=== PATIENT | female | born 1960 | race Caucasian/White ===

== ENCOUNTER 2021-12-25 14:58 | Outpatient (CLI) | payer BC, SELFPAY ==
--- NOTE | 2021-12-25 15:20 | CRLHL7_ITS ---
For Patients: As a result of the Century Cures Act, medical imaging exams and procedure reports are released immediately into your electronic medical record. You may view this report before your referring provider. If you have questions, please contact your health care provider. BILATERAL SCREENING MAMMOGRAM WITH COMPUTER-AIDED DETECTION AND TOMOSYNTHESIS TECHNIQUE: CC and MLO views were obtained. These mammographic images have been obtained using full-field digital technique. These mammographic images were interpreted with the benefit of computer-aided detection. Breast Tomosynthesis was used in this interpretation. COMPARISON FILM: 11/29/20, MRI 05/29/21, 11/25/18. FINDINGS: There are scattered areas of fibroglandular density IMPRESSION: There is no radiographic evidence for malignancy. ASSESSMENT: BI-RADS Category 1: Negative RECOMMENDATION: Routine screening mammogram in 1 year. A lay language report of this examination will be provided to the patient. Sean Harvey M.D. Diagnostic Radiologist [email or web address] JANETH/Dictated by: Sean Harvey MD @ 12/26/2021 8:53:00 AM (Electronically Signed)
== END 2021-12-25 14:59 | disposition home or self-care (01) ==
LOC: MAMMO 15:00
PROVIDERS: Visit Provider Nurse Practitioner Family
DX: Z12.31 Encounter for screening mammogram for malignant neoplasm of breast (principal)
CPT/HCPCS: 77063; 77067

== ENCOUNTER 2022-05-05 10:43 | Outpatient (CLI) | payer BC, SELFPAY ==
[2022-05-05 22:18] LABS: Albumin* 4.6 g/dL (3.3-5.0); Chloride* 103 mmol/L (96-114); Potassium* 4.2 mmol/L (3.6-5.1); Sodium* 142 mmol/L (135-149)
[2022-05-05 22:20] LABS: Cholesterol* 219 mg/dL (90-199); Creatinine* 0.9 mg/dL (0.5-1.5); Estimated Glomerular Filt Rate 73 ml/min
[2022-05-05 22:21] LABS: Alanine Aminotransferase* 48 U/L (4-35); Alkaline Phosphatase* 80 U/L (40-150); Bilirubin Total* 0.8 mg/dL (0.1-1.5); Blood Urea Nitrogen* 13 mg/dL (7-30); Carbon Dioxide* 29 mmol/L (20-32); Glucose* 97 mg/dL (60-115); Total Protein* 7.9 g/dL (6.0-8.3); Triglycerides* 147 mg/dL (40-149)
[2022-05-05 22:22] LABS: Calcium* 10.3 mg/dL (8.4-10.6); HDL Cholesterol* 53 mg/dL (>=50); LDL Cholesterol Calculated 137 mg/dL (<100)
[2022-05-05 22:33] LABS: Vitamin D 25 Hydroxy* 50 ng/mL (30-80)
[2022-05-05 23:01] LABS: Aspartate Amino Transferase* 41 U/L (12-35)
[2022-05-05 23:05] LABS: Hepatitis C Virus Antibody* Negative (Negative)
== END 2022-05-05 10:44 | disposition home or self-care (01) ==
PROVIDERS: PCP Family Medicine; Visit Provider Family Medicine
DX: Z11.59 Encounter for screening for other viral diseases (principal); I10 Essential (primary) hypertension; E78.5 Hyperlipidemia, unspecified; E05.90 Thyrotoxicosis, unspecified without thyrotoxic crisis or storm; Z79.899 Other long term (current) drug therapy
CPT/HCPCS: 80053; 80061; 82306; 84443; 86803

== ENCOUNTER 2022-05-22 12:37 | Outpatient (CLI) | payer BC, SELFPAY ==
--- NOTE | 2022-05-22 14:00 | CRLHL7_ITS ---
For Patients: As a result of the Cures Act, medical imaging exams and procedure reports are released immediately into your electronic medical record. You may view this report before your referring provider. If you have questions, please contact your health care provider. Examination: US abdominal aorta Indication: Abdominal aortic aneurysm screening. Technique: Fernández scale and color Doppler images of the aorta and common iliac arteries are obtained. Comparison: None Findings: Proximal aorta: 2.5 x 2.5 cm Mid aorta: 1.9 x 1.9 cm Distal aorta: 1.9 x 1.6 cm Right common iliac artery: 1.1 x 1.0 cm Left common iliac artery: 1.2 x 1.1 cm Impression: No abdominal aortic aneurysm. Dictated by Sean Harvey MD @ 05/22/2022 3:00:50 PM (Electronically Signed)
--- NOTE | 2022-05-22 15:00 | CRLHL7_ITS ---
For Patients: As a result of the Century Cures Act, medical imaging exams and procedure reports are released immediately into your electronic medical record. You may view this report before your referring provider. If you have questions, please contact your health care provider. CLINICAL HISTORY: Postmenopausal bleeding episode TECHNIQUE: 2D hernandez scale and color Doppler images were acquired of the pelvis using a transvaginal approach. FINDINGS: On transvaginal imaging, the myometrium has a heterogeneous echotexture. There is a posterior mid intramural fibroid measuring 1.7 x 1.3 x 1.2 cm. The endometrial lining appears diffusely thickened and measures 14 mm in thickness. Incidental cervical nabothian cysts are present. The uterus measures 9.1 x 4.1 x 5.7 cm. The ovaries are surgically absent. There are no suspicious fluid collections within the cul-de-sac. IMPRESSION: Diffusely thickened endometrium measuring 14 millimeters. Posterior midline uterine fibroid measuring 1.7 cm. Dictated by Sean Harvey MD @ 05/22/2022 2:58:46 PM (Electronically Signed)
== END 2022-05-22 12:38 | disposition home or self-care (01) ==
LOC: RAD 12:38
PROVIDERS: PCP Family Medicine; Visit Provider Family Medicine
DX: N95.0 Postmenopausal bleeding (principal); R93.89 Abnormal findings on diagnostic imaging of other specified body structures; D25.9 Leiomyoma of uterus, unspecified; I77.810 Thoracic aortic ectasia
CPT/HCPCS: 76706; 76830; 93306

== ENCOUNTER 2022-06-10 13:46 | Outpatient (CLI) | payer BC, SELFPAY ==
--- NOTE | 2022-06-10 14:30 | CRLHL7_ITS ---
For Patients: As a result of the Century Cures Act, medical imaging exams and procedure reports are released immediately into your electronic medical record. You may view this report before your referring provider. If you have questions, please contact your health care provider. BILATERAL BREAST MRI WITHOUT AND WITH GADOLINIUM CLINICAL HISTORY: Personal history of RIGHT breast atypical lobular hyperplasia and LEFT breast DCIS. The patient underwent lumpectomy and radiation for the LEFT breast DCIS in . There is also a history of surgical excision of the ALH in the RIGHT breast. INDICATION FOR BREAST MRI: Screening breast MRI in this high-risk woman. COMPARISON STUDIES: Breast MRI 05/29/2021. BILATERAL mammogram 12/25/2021. CONTRAST: 15 mL Dotarem. TECHNIQUE: The patient was positioned prone using a breast coil. Multiple imaging sequences were obtained using 1-1.5 mm thick slices with no gap. The image sequences include T2-weighted STIR in the axial plane, T1-weighted nonfat-saturated gradient echo in the axial plane, pre- and post-contrast T1-weighted FLASH 3D with fat suppression in the axial plane, and T1-weighted FLASH high-resolution 3D with fat suppression in the sagittal plane. Image post-processing was performed on a Pix4D workstation. Complex 3D rendering including maximum intensity projections (MIPS) and volumetric renderings were obtained to optimize visualization of the extent of pathology and relationship to the nipple, skin, and chest wall. This aids in determining feasibility of breast conservation surgery. Subtraction, multiplanar reconstruction, mean curve determination, and angiogenesis mapping were also performed. The study was technically adequate. FINDINGS: Amount of Fibroglandular Tissue: Scattered fibroglandular tissue. Breast Background Enhancement: Mild. RIGHT/LEFT Breast: Negative for suspicious mass or non-mass enhancement. Lymph Nodes: Lymph nodes are preserved. IMPRESSIONS AND RECOMMENDATIONS: Negative for signs of malignancy. Recommend follow-up with annual screening mammography. If continuing breast MRI, this is best offset from mammogram by six months. BI-RADS Category 1: Negative Trish Boone M.D. Body/Breast Radiologist [email or web address] JAMES/mónica sales/Dictated by: Trish Boone MD @ 06/11/2022 4:00:00 PM (Electronically Signed)
== END 2022-06-10 13:47 | disposition home or self-care (01) ==
LOC: MRI 13:46
PROVIDERS: PCP Family Medicine; Visit Provider Nurse Practitioner Family
DX: Z12.39 Encounter for other screening for malignant neoplasm of breast (principal); N60.91 Unspecified benign mammary dysplasia of right breast
CPT/HCPCS: 77049; A9575

== ENCOUNTER 2022-07-03 14:29 | Outpatient (RCR) | payer BC, SELFPAY | END 2022-12-30 23:59 | disposition home or self-care (01) | LOC: CCIC 14:29 | PROVIDERS: PCP Family Medicine; Visit Provider Nurse Practitioner Family | DX: D05.12 Intraductal carcinoma in situ of left breast (principal); Z17.0 Estrogen receptor positive status [ER+] | CPT/HCPCS: 99212; 99214 ==

== ENCOUNTER 2022-07-15 08:01 | Day surgery (SDC) | payer BC, SELFPAY ==
[2022-07-15 08:13] VITALS: BMI 40.2
[2022-07-15 08:20] VITALS: BP 130/76; PULSE 64; RESP 16; TEMP 36.4; O2SAT 94
--- NOTE | 2022-07-15 08:20 | SUR.PREOP ---
Patient provided home covid negative results to RN.
[2022-07-15] MEDS: LACTATED RINGERS 1000 ML 1,000 ML 100 ML IV (08:30)
[2022-07-15] MEDS: SODIUM CHLORIDE 0.9 % (FLUSH) 10 ML SYRINGE IVF (08:30)
--- NOTE | 2022-07-15 09:00 | W.PM.GYNPROC ---
Procedure Note Date Seen: 07/15/22 Procedure Details: PREOPERATIVE DIAGNOSIS: 1. Postmenopausal bleeding 2. Thickened endometrial (14 mm) by ultrasound 3. History of endometrial polyp POSTOPERATIVE DIAGNOSIS: 1. Postmenopausal bleeding 2. Thickened endometrial (14 mm) by ultrasound 3. History of endometrial polyp 4. Multiple endometrial polyps NAME OF PROCEDURE: 1. Hysteroscopy. 2. D and C 3. Polypectomies. SURGEON: Abel. ANESTHESIA: Monitored anesthesia care and paracervical block. COMPLICATIONS: None.. ESTIMATED BLOOD LOSS: Less than 10 mL. FLUID DEFICIT: 185 mL recorded in the instrument, though approximately 50 mL was lost on the floor. Total deficit estimated to be 135 mL saline. FINDINGS: Multiple endometrial polyps. PATHOLOGY SPECIMENS: 1. Endometrial polyps and endometrial curettings sent as a single specimen. PROCEDURE: After obtaining informed consent, the patient was taken to the operating room where she received monitored anesthesia care. She was prepared and draped in the normal sterile fashion, in the dorsal lithotomy position. An open-sided bivalve speculum was introduced into the vagina and the cervix visualized. The anterior lip of the cervix was grasped with a single-tooth tenaculum for traction. A paracervical block was then administered using a total of 20 mL of a 50/50 mixture of 0.25% Marcaine and 1% lidocaine plain. The uterus was gently sounded. Sound length was 8 cm. The cervix was gently dilated to a # 6 Hegar dilator. A hysteroscope was then advanced under direct visualization through the cervix into the uterine cavity. Sterile normal saline was used as distending medium. The uterine cavity was carefully inspected with the findings noted above. Pictures were taken for documentation purposes. The TruClear morcellator was inserted through the operating channel in the hysteroscope. The morcellator was used to remove the polyps in their entirety. The hysteroscope was then removed. The endometrial lining was then sharply curetted. The hysteroscope was removed. The tenaculum was removed. There was little bleeding from the tenaculum site, which was controlled with direct pressure sponge stick. All instruments were then removed. The patient tolerated the procedure well. Sponge, lap, needle, and instrument counts reported as correct x2. The patient was taken to the recovery room awake in a stable condition.
--- NOTE | 2022-07-15 09:17 | W.ANESCHARGE ---
Anesthesia Charges Start Date/Time Anesthesia Start Date: 07/15/22 Anesthesia Start Time: 09:16 Stop Date/Time Anesthesia Stop Date: 07/15/22 Anesthesia Stop Time: 10:08
[2022-07-15] MEDS: BUPIVACAINE 0.25% 30 ML 20 ML INJECTION (09:38)
[2022-07-15] MEDS: LIDOCAINE 1% MDV 20 ML INJECTION (09:38)
[2022-07-15 10:09] VITALS: BP 99/67; PULSE 70; RESP 14; TEMP 36.6; O2SAT 92
--- NOTE | 2022-07-15 10:12 | W.ANESCHARGE ---
Anesthesia Charges Start Date/Time Anesthesia Start Date: 07/15/22 Anesthesia Start Time: 09:16 Stop Date/Time Anesthesia Stop Date: 07/15/22 Anesthesia Stop Time: 10:08
[2022-07-15 10:15] VITALS: BP 108/74; PULSE 61; RESP 14; O2SAT 94
[2022-07-15 10:30] VITALS: BP 111/50; PULSE 60; RESP 14; O2SAT 94
[2022-07-15 10:45] VITALS: BP 107/51; PULSE 57; RESP 14; O2SAT 97
== END 2022-07-15 11:10 | disposition home or self-care (01) ==
PROVIDERS: PCP Family Medicine; Visit Provider Obstetrics & Gynecology
PROC: 0UDB8ZZ Extraction of Endometrium, Via Natural or Artificial Opening Endoscopic (ICD-10-PCS; CPT 58558; principal; 2022-07-15 09:30)
DX: N95.0 Postmenopausal bleeding (principal); N84.0 Polyp of corpus uteri; R93.89 Abnormal findings on diagnostic imaging of other specified body structures
CPT/HCPCS: 58558; 00952; A9270; J1100; J1885; J2250; J2405; J2704; J3010; J3490; J7120

== ENCOUNTER 2022-12-29 13:01 | Outpatient (CLI) | payer BC, SELFPAY | END 2022-12-29 13:02 | disposition home or self-care (01) | LOC: NFLDREF 13:03 | PROVIDERS: PCP Family Medicine; Visit Provider Obstetrics & Gynecology | DX: R23.2 Flushing (principal); N95.0 Postmenopausal bleeding | CPT/HCPCS: 84443 ==

== ENCOUNTER 2023-01-20 14:32 | Outpatient (CLI) | payer BC, SELFPAY ==
--- NOTE | 2023-01-20 14:40 | CRLHL7_ITS ---
For Patients: As a result of the Cures Act, medical imaging exams and procedure reports are released immediately into your electronic medical record. You may view this report before your referring provider. If you have questions, please contact your health care provider. BILATERAL SCREENING MAMMOGRAM WITH COMPUTER-AIDED DETECTION AND TOMOSYNTHESIS TECHNIQUE: CC and MLO views were obtained. These mammographic images have been obtained using full-field digital technique. These mammographic images were interpreted with the benefit of computer-aided detection. Breast tomosynthesis was used in this interpretation. COMPARISON FILM: 12/25/21, 11/29/20, 11/29/19. FINDINGS: There are scattered areas of fibroglandular density. IMPRESSION: There is no radiographic evidence for malignancy. ASSESSMENT: BI-RADS Category 1: Negative RECOMMENDATION: Routine screening mammogram in 1 year. A lay language report of this examination will be provided to the patient. XIANG SUGGS M.D. Diagnostic/Nuclear Medicine Radiologist [email or web address] Transcribed: 2:[address]/Dictated by: Xiang Suggs MD @ 01/21/2023 9:59:00 AM (Electronically Signed)
== END 2023-01-20 14:33 | disposition home or self-care (01) ==
LOC: MAMMO 14:32
PROVIDERS: PCP Family Medicine; Visit Provider Obstetrics & Gynecology
DX: Z12.31 Encounter for screening mammogram for malignant neoplasm of breast (principal)
CPT/HCPCS: 77063; 77067

== ENCOUNTER 2023-02-05 09:51 | Outpatient (RCR) | payer BC, SELFPAY | END 2023-08-04 23:59 | disposition home or self-care (01) | LOC: CCIC 09:51 | PROVIDERS: PCP Family Medicine; Visit Provider Physician Assistant | DX: D05.12 Intraductal carcinoma in situ of left breast (principal); R23.2 Flushing; N95.0 Postmenopausal bleeding; Z17.0 Estrogen receptor positive status [ER+] | CPT/HCPCS: 99212; 99214; 99215 ==

== ENCOUNTER 2023-07-27 09:04 | Outpatient (CLI) | payer BC, SELFPAY ==
--- OUTSIDE RECORDS SUMMARY | 2023-07-27 09:08 | XMS_ITS | Clinical Summary ---
Author Name Unknown Organization [facility] Address [address] [place] [address] Care Team Providers Care Packaging Supervisor Name Role Phone Unavailable Primary Care Provider Unavailabl e Source Comments Patient records contain information from all sites at [facility]. For routine questions regarding patient records, call [phone] during business hours, M-F 8:00 AM - 5:00 PM Central Time. Record requests for emergency care only can be directed to [phone] at any time.[facility] Allergies Active Allergy Reactions Criticality Noted Date Comments Animal Dander Cough,Other (see comments) Low 2022 Atorvastatin Other (see comments) High 07/15/2022 House Dust Headache High 05/05/2022 Mold Other (see comments) High 05/05/2022 Pollen Extracts Other (see comments) High 05/05/2022 Medications Medication Sig Dispensed Refills Start Date End Date Status amLODIPine (NORVASC) 5 mg tablet Take 1 tablet by mouth daily. 10/30/2016 Active potassium chloride (KLOR-CON SPRINKLE) 10 mEq ER sprinkle capsule daily. 2 04/28/2018 Active valsartan-hydroCHL OROthiazide (DIOVAN-HCT) 320-25 mg per tablet Take 1 tablet by mouth daily. 3 04/20/2018 Active cetirizine (ZyrTEC) 10 mg tablet Take 1 tablet by mouth daily. 10/30/2016 Active cholecalciferol, vitamin D3, 25 mcg (1,000 unit) tablet,chewable 50 mcg. 05/05/2022 Active clobetasoL 0.025 % cream as needed. 05/05/2022 Active diazePAM (VALIUM) 10 mg tablet as needed. 05/05/2022 Active metroNIDAZOLE (METROGEL) 1 % gel as needed. 05/06/2022 Active FLUoxetine (PROzac) 20 mg capsule Take by mouth daily. 05/06/2022 Acti ve acetaminophen (TYLENOL) 500 mg tablet Take 2 tablets (1,000 mg total) by mouth every 6 (six) hours as needed for pain. Alternate with ibuprofen every 3 hours. Do not exceed 4000 mg or 4 g in 24 hours. 30 tablet 09/09/2022 Active ibuprofen (ADVIL,MOTRIN) 200 mg tablet Take 3 tablets (600 mg total) by mouth every 6 (six) hours as needed for pain. Alternate with acetaminophen every 3 hours. 30 tablet 09/09/2022 Active oxyCODONE (ROXICODONE) 5 mg immediate release tabletIndications: Acute Pain Take 1 tablet (5 mg total) by mouth every 6 (six) hours as needed for pain Indication: Acute Pain. Not relieved by over the counter pain medications. 10 tablet 09/09/2022 Active sennosides-docusat e sodium (SENOKOT-S) 8.6-50 mg per tablet Take 1 tablet by mouth 2 (two) times a day as needed for constipation. While on narcotics. 09/09/2022 Active magnesium 200 mg tablet Take 400 mg by mouth every morning before breakfast. 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 on 05/11/2018 Aneurysm Aortic Ascending Without Rupture 2016 Eczema 11/14/2014 08/08/2022 Encounters Date Type Department Care Team Description 07/23/2023 12:30 PM CDT Office Visit [facility] in [place], [place] [address] [place] [address] Lisbet Zambrano B.D.S., M.S. Obstructive Sleep Apnea Adult (Primary Dx) 06/16/2023 7:30 AM CDT Comprehensive Visit [facility] in [place], [place] [address] [place] [address] Lisbet Zambrano B.D.S., M.S. Obstructive Sleep Apnea Adult (Primary Dx) 06/16/2023 Ancillary Procedure Department of Dental Specialties from Last 3 Months Family History Medical History Relation Name Comments Clotting disorder Daughter Yvonne Post-surge ry Endometrial cancer Daughter Yvonne 2021 Obesity Daughter Yvonne Anxiety disorder Father Mino III Dementia Father Mino III Lewy body Hypertension Father Mino III Other cancer Father Mino III Multiple myelom a Parkinson disease Father Mino III With lewy bodies - Breast cancer Father's Sister 1 Steffi Age 74 Anxiety disorder Father's Sister 2 Tonja Kidney disease Maternal Grandfather Gbison Arthritis Mother Latisha Breast cancer Mother Latisha Age 60 Hyperlipidemia Mother Latisha Hypertension Mother Latisha Kidney disease Mother Latisha Obesity Mother Latisha Thyroid disease Mother Latisha Breast cancer Mother's Sister Chayito Age 45 Lung cancer Paternal Grandfather Mino Romero. Breast cancer Paternal Grandmother Tess Age 45 Stroke Paternal Grandmother Tess Hypertension Sister Gwen Thyroid disease Sister Gwen Relation Name Status Comments Daughter Yvonne Father Mino III Father's Sister 1 Steffi Father's Sister 2 Tonja Maternal Grandfather Gibson Mother Latisha Mother's Sister Chayito Paternal Grandfather Mino Romero. Paternal Grandmother Tess Sister Gwen Social History Tobacco Use Types Packs/Day Years Used Date Smoking Tobacco: Former Cigarettes 0 04/06/1977 - 04/06/1985 Smokeless Tobacco: Never Tobacco Cessation:Counseling Given: Not Answered Comments:Also smoker 1996 to 1999 Alcohol Use Standard Drinks/Week Comments Yes 2 (1 standard drink = 0.6 oz pure alcohol) seldom consume alcohol, when I do it? s a cocktail or glass o Humiliation, Afraid, Rape, and Kick questionnair e Answer Date Recorded Within the last year, have y ou been afraid of your partner or ex-partner? No 08/06/2022 Within the last year, have y ou been humiliated or emotionally abused in other ways by your partner or ex-partner? No Within the last year, have y ou been kicked, hit, slapped, or otherwise physically hurt by your partner or ex-partner? No 08/06/2022 Within the last year, have y ou been raped or forced to have any kind of sexual activity by your partner or ex-partner? No 08/06/2022 Social Connection and Isolat ion Panel [NHANES] Answer Date Recorded In a typical week, how many times do you talk on the phone with family, friends, or neighbors? More than three times a week 08/06/2022 How often do you get togethe r with friends or relatives? Patient declined 08/06/2022 How often do you attend chur or latter-day services? Never 08/06/2022 Do you belong to any clubs o r organizations such as taoist groups, unions, fraternal or athletic groups, or school groups? Yes 08/06/2022 How often do you attend meet ings of the clubs or organizations you belong to? 1 to 4 times per year 08/06/2022 Are you , , di vorced, , never , or living with a partner? 08/06/2022 AUDIT-C Answer Date Recorded Q1: How often do you have a drink containing alc ohol? Monthly or less 08/06/2022 Q2: How many drinks containi ng alcohol do you have on a typical day when you are drinking? 1 or 2 08/06/2022 Q3: How often do you have si x or more drinks on one occasion? Less than monthly 08/06/2022 Overall Financial Resource Strain (CARDIA) Answe r Date Recorded How hard is it for you to pa y for the very basics like food, housing, medical care, and heating? Not hard at all 08/06/2022 [facility] Occupational Stress Questionnaire Answer Date Recorded Do you feel stress - tense, restless, nervous, or anxious, or unable to sleep at night because your mind is troubled all the time - these days? Only a little 08/06/2022 Exercise Vital Sign Answer Date Recorde d On average, how many days pe r week do you engage in moderate to strenuous exercise (like a brisk walk)? 0 days 08/06/2022 On average, how many minutes do you engage in exercise at this level? 0 min 08/06/2022 Hunger Vital Sign Answer Date Recorded Within the past 12 months, y ou worried that your food would run out before you got the money to buy more. Never true 08/07/19 Within the past 12 months, t he food you bought just didn't last and you didn't have money to get more. Never true 08/06/2022 PRAPARE - Transportation Answer Date Re corded In the past 12 months, has l ack of transportation kept you from medical appointments or from getting medications? No 06/2022 In the past 12 months, has l ack of transportation kept you from meetings, work, or from getting things needed for daily living? No 08/06/2022 Housing Stability Vital Sign Answer Collins e Recorded In the last 12 months, was t here a time when you were not able to pay the mortgage or rent on time? No 08/06/2022 In the last 12 months, how many places have you lived? 1 08/06/2022 In the last 12 months, was t here a time when you did not have a steady place to sleep or slept in a intermediate (including now)? No 08/06/2022 Nutrition Answer Date Recorded Nutrition: EVOO Fat Source Yes 08/06 On average, how many serving s of fruits and vegetables do you eat per day (serving size is equal to 1 cup or approximately the size of a tennis ball)? 2-3 08/06/2022 Dental Answer Date Recorded Dental: Regular Dentist Yes 08/07/19 Employment Answer Date Recorded Employment status Employed and actively working without restrictions 08/06/2022 Education Answer Date Recorded What is the highest level of school you have completed or the highest degree you have received? Bachelor's degree (e.g., BA, AB, BS) 08/06/2022 Sex and Gender Information Value Date Recorded Sex Assigned at Female 05/07/2018 4:20 PM FOOD SERVICE SUPERVISOR Gender Identity Female 05/07/2018 4:20 PM FOOD SERVICE SUPERVISOR Sexual Orientation Straight 05/07/2018 4: 20 PM FOOD SERVICE SUPERVISOR Last Filed Vital Signs Vital Sign Reading Time Taken Comments Blood Pressure 134/71 09/09/2022 5:15 PM CDT Pulse 71 09/09/2022 5:15 PM CDT Temperature 37 ??C (98.6 ??F) 09/09/2022 4:42 PM CDT Respiratory Rate 14 09/09/2022 4:42 PM CDT Oxygen Saturation 91% 09/09/2022 5:15 PM CDT Inhaled Oxygen Concentration - - Weight 108 kg (237 lb 14 oz) 09/09/2022 7:42 AM CDT Height 169 cm (5' 6.54) 09/09/2022 7:42 AM CDT Body Mass Index 37.78 09/09/2022 7:42 AM CDT Plan of Treatment Upcoming Encounters Date Type Department Care Team (Late st Contact Info) Description 08/26/2023 2:00 PM CDT Telemedicine Department of [facility] Specialties in [place], [place] [address] [place] [phone] Lisbet Zambrano B.D.S., M.S. [address] [place] [address] Health Maintenance Due Date Last Done Comments CT Colonography 1961 Cologuard 1961 HIV Screening 1960 Hepatitis C Screening 1961 DTaP,Tdap,and Td Vaccines (1 - Tdap) 11/26/2004 11/25/2004 Mammogram 10/20/2015 10/19/2014 (Perf ormed elsewhere) Colonoscopy 09/14/2018 09/14/2013 (Perf ormed elsewhere) Colorectal Cancer Surveillance 09/14/2018 Office Visit for Blood Pressure Check / Re-check 12/05/2022 09/04/2022 Depression Screening (Annual PHQ-2) 04/06/2023 Creatinine Level (Kidney Function Test) 06/18/2023 06/17/2022, 10/29/2016 Lipid (Cholesterol) Screening 06/18/2023 06/17/2022 Potassium Level 06/18/2023 06/17/2022, 10/29/2016 Sodium Level 06/18/2023 06/17/2022, 10/29/2016 Fasting Glucose for Diabetes Screening 06/17/2025 06/17/2022 Zoster Vaccines Completed 06/09/2019, 01/14/2019 Cervical Cancer Screening Discontinued 2020, 10/19/2014 (Performed elsewhere) Influenza Vaccine Completed 12/29/2022, , 01/12/2021, Additional history exists COVID-19 Vaccine Completed 01/20/2023, 12/2021, 11/10/2021, Additional history exists Pneumococcal vaccine (0-64 years) Aged Out No longer eligible based on patient's age to complete this topic Procedures Procedure Name Priority Date/Time Associated Diagnosis Comments INSERT Routine 07/23/2023 12:30 PM CDT Obstructive Sleep Apnea Adult MEDICAL PANOREX Routine 06/18/2023 3:42 PM CDT Obstructive Sleep Apnea Adult IMPRESSION Routine 06/16/2023 7:30 AM CDT Obstructive Sleep Apnea Adult DENTAL IMAGE EXAM Routine 06/16/2023 12: 00 AM CDT GLUCOSE, FASTING, S/P Routine 06/17/2022 8:06 AM CDT Aneurysm Aortic Ascending Without Rupture (HCC) LIPID PANEL, S Routine 06/17/2022 8:06 AM CDT Aneurysm Aortic Ascending Without Rupture (HCC) SODIUM, S/P Routine 06/17/2022 8:06 AM CDT Aneurysm Aortic Ascending Without Rupture (HCC) POTASSIUM, S/P Routine 06/17/2022 8:06 AM CDT Aneurysm Aortic Ascending Without Rupture (HCC) CREATININE WITH EGFR, S/P Routine 06/17/2022 8:06 AM CDT Aneurysm Aortic Ascending Without Rupture (HCC) from Last 3 Months or Most Recently Relevant to Health Maintenance Results * [facility] (06/18/2023 3:42 PM CDT) Narrative Lisbet Zambrano B.D.S., M.S. - 06/18/2023 3:42 PM CDT A Panoramic radiograph taken today, revealed bilateral normal condylar contours, no bony pathology. Sinus appears clear. Lisbet Zambrano B.D.S., M.S. DENTAL ORDERABLE S * Face, Mouth-Dental Image Exam (06/16/2023 12:00 AM CDT) Narrative [facility] - 06/16/2023 12:05 PM CDT This order has been created and auto-finalized to support the import of images acquired without order. The clinical documentation to support these images can be found on the encounter that produced images. Provider Not In System IMG NON RAD IMAGI NG PROCEDURES [facility] NA * (ABNORMAL) Lipid Panel (06/17/2022 8:06 AM CDT) Triglycerides 139 mg/dL 06/17/2022 9:14 AM CDT DTL Comment: ----REFERENCE VALUE---- Normal: <150 mg/dL Borderline High: 150-199 mg/dL High: 200-499 mg/dL Very High: > or =500 mg/dL Cholesterol, Total 215(H) mg/dL 2022 9:14 AM CDT DTL Comment: ----REFERENCE VALUE---- Desirable: < 200 mg/dL Borderline High: 200 - 239 mg/dL High: > or = 240 mg/dL Cholesterol, LDL, Calculated 150(H) mg/dL 06/17/2022 9:14 AM CDT DTL Comment: ----REFERENCE VALUE---- Desirable: <100 mg/dL Above Desirable: 100-129 mg/dL Borderline High: 130-159 mg/dL High: 160-189 mg/dL Very High: >=190 mg/dL ----ADDITIONAL INFORMATION---- LDL cholesterol calculated using the Saenz/NIH equation. Cholesterol, HDL, S 40(L) >=50 mg/dL 06/17/2022 9:14 AM CDT DTL Cholesterol, Non-HDL, Calculated 175(H) mg/dL 06/17/2022 9:14 AM CDT DTL Comment: ----REFERENCE VALUE---- Desirable: <130 mg/dL Above Desirable: 130-159 mg/dL Borderline High: 160-189 mg/dL High: 190-219 mg/dL Very High: > or =220 mg/dL Fasting (8 HR or more) Yes 06/17/2022 8:46 AM CDT DTL Blood (Blood, Venous) 06/17/2022 8:06 AM CDT 06/17/2022 8:46 AM CDT Shahid Monte M.D. LAB BLOOD ADD-ON Performing Organization Address City/[facility]/ZIP Co de Phone Number [facility] [address] [place] [address] * Sodium (06/17/2022 8:06 AM CDT) Sodium, S 142 135 - 145 mmol/L 06/17/2022 9:14 AM CDT DTL Blood (Blood, Venous) 06/17/2022 8:06 AM CDT 06/17/2022 8:46 AM CDT Shahid Monte M.D. LAB BLOOD ADD-ON Performing Organization Address City/[facility]/ZIP Co de Phone Number [facility] [address] [place] [address] * Potassium (06/17/2022 8:06 AM CDT) Potassium, S 4.2 3.6 - 5.2 mmol/L 06/17/2022 9:14 AM CDT DTL Blood (Blood, Venous) 06/17/2022 8:06 AM CDT 06/17/2022 8:46 AM CDT Shahid Monte M.D. LAB BLOOD ADD-ON Performing Organization Address [facility] Co de Phone Number [facility] [address] [place] [address], [facility] [address] [place] [address] * (ABNORMAL) Glucose, Fasting (06/17/2022 8:06 AM CDT) Glucose, P 114(H) 70 - 100 mg/dL 06/17/2022 9:09 AM CDT DTL Last Intake 12 hr 06/17/2022 8:47 AM CDT DTL Blood (Blood, Venous) 06/17/2022 8:06 AM CDT 06/17/2022 8:47 AM CDT Shahid Monte M.D. LAB BLOOD NON ADD-O N Performing Organization Address [facility] Co de Phone Number [facility] [address] [place] [address], [facility] [address] [place] [address] * Creatinine with Estimated GFR (06/17/2022 8:06 AM CDT) Creatinine 1.02 0.59 - 1.04 mg/dL 06/17/2022 9:14 AM CDT DTL Estimated GFR (eGFR) 63 >=60 mL/min/BSA 06/17/2022 9:14 AM CDT DTL Comment: Estimated GFR calculated using the 2020 CKD_EPI creatinine equation. Blood (Blood, Venous) 06/17/2022 8:06 AM CDT 06/17/2022 8:46 AM CDT Shahid Monte M.D. LAB BLOOD ADD-ON [facility] [address] [place] [address], [place] DTL [facility] [address] [place] [address] from Last 3 Months or Most Recently Relevant to Health Maintenance Advance Directives For more information, please contact: [phone] Documents on File Type Date Recorded Patient Trimmer Helper Expl anation Advance Directives 09/10/2022 6:47 AM INVAL ID * Full Code (Latest Code Status on File) Date Activated Date Inactivated Comments 09/09/2022 4:27 PM 09/09/2022 8:01 PM Question Answer Comments Full Code: Not Discussed Due to: Patient not available * Full Code Date Activated Date Inactivated Comments 09/09/2022 7:23 AM 09/09/2022 4:27 PM Question Answer Comments Full Code: Discussed
--- OUTSIDE RECORDS SUMMARY | 2023-07-27 09:08 | XMS_ITS ---
Author Name Unknown Organization [facility] Address [address] [place] [address] Care Team Providers Care Kiln Mechanic Name Role Phone Unavailable Unavailable Unavailable Surgery Details Not on file Complications Check Surgery Details section. Procedure Estimated Blood Loss Check Surgery Details section. Procedure Findings Check Surgery Details section. Procedure Specimens Taken Check Surgery Details section.
--- OUTSIDE RECORDS SUMMARY | 2023-07-27 09:08 | XMS_ITS ---
Author Name Unknown Organization [facility] Address [address] [place] [address] Care Team Providers Care Horse Buyer Name Role Phone Unavailable Primary Care Provider Unavailabl e Active Problems Problem Noted Date Diagnosed Date Claustrophobia 08/08/2022 08/08/2022 Dyslipidemia 08/08/2022 08/08/2022 Ectasia Thoracic Aortic 08/08/2022 08/09/19 23 Gallstone Without Obstruction 08/08/2022 Hypertension 08/08/2022 08/08/2022 [...] Ascending Without Rupture 2016 Eczema 11/14/2014 08/08/2022 Current Oncology Plans No current plan information found. Past Plans No past plan information found. Radiation Treatments * Plan Last Treated On Elapsed Days Fractions Treated Prescribed Fraction Dose Prescribed Total Dose F1 BH Lbreast 06/18/2018 18 15 267 cGy 4,005 cGy Reference Point Last Treated On Elapsed Days Session Dose Total Dose [id number] 06/18/2018 18 267 cGy 4,005 cGy
--- OUTSIDE RECORDS SUMMARY | 2023-07-27 09:08 | XMS_ITS | Referral Summary ---
Author Name Unknown Organization [facility] Address [address] [place] [address] Care Team Providers Care Antique Collector Name Role Phone Unavailable Primary Care Provider Unavailabl e Source Comments Patient records contain information from all sites at [facility]. For routine questions regarding patient records, call [phone] during business hours, M-F 8:00 AM - 5:00 PM Central Time. Record requests for emergency care only can be directed to [phone] at any time.[facility] Encounters Date Type Department Care Team Description 07/23/2023 12:30 PM CDT Office Visit Department of Dental Specialties in [place], [place] [address] [place] [address] Lisbet Zambrano B.D.S., M.S. Obstructive Sleep Apnea Adult (Primary Dx) 06/16/2023 Ancillary Procedure Department [facility] Specialties 06/16/2023 7:30 AM CDT Comprehensive Visit Department of Dental Specialties in [place], [place] [address] [place] [address] Lisbet Zambrano B.D.S., M.S. Obstructive Sleep Apnea Adult (Primary Dx) from Last 3 Months Allergies Active Allergy Reactions Criticality Noted Date [...] Ascending Without Rupture 2016 Eczema 11/14/2014 08/08/2022 Social History Tobacco Use Types Packs/Day Years [...] 08/06/2022 How often do you attend chur ch or zoroastrianism services? Never 08/06/2022 Do you belong to any clubs o r organizations such as restorationism groups, unions, fraternal or athletic groups, or [...] and heating? Not hard at all 08/06/2022 [facility] - Occupational Stress Questionnaire Answer Date [...] money to buy more. Never true 08/07/19 23 Within the past 12 months, t he [...] place to sleep or slept in a snf (including now)? No 08/06/2022 Nutrition Answer Date [...] Sex Assigned at Female 05/07/2018 4:20 PM MACHINE SET UP OPERATOR Gender Identity Female 05/07/2018 4:20 PM MACHINE SET UP OPERATOR Sexual Orientation Straight 05/07/2018 4: 20 PM MACHINE SET UP OPERATOR Last Filed Vital Signs Vital Sign Reading [...] CDT Telemedicine Department of Dental Specialties in [place], [place] [address] [place] [address] Lisbet Zambrano B.D.S., M.S. [address] [place] [address] Procedures Procedure Name Priority Date/Time Associated Diagnosis [...] contours, no bony pathology. Sinus appears clear. Nick Ortega B.D.S.SJoyce DENTAL ORDERABLE S * Face, Mouth-Dental Image Exam (06/16/2023 12:00 AM CDT) Narrative [facility] - 06/16/2023 12:05 PM CDT This order has been created and auto-finalized to support the import of images acquired without order. The clinical documentation to support these images can be found on the encounter that produced images. Provider Not In System IMG NON RAD IMAGI NG PROCEDURES [facility] NA * (ABNORMAL) Lipid Panel (06/17/2022 8:06 [...] M.D. LAB BLOOD ADD-ON Performing Organization Address City/[facility]/ZIP Co de Phone Number [facility] [address] [place], [place] [id number] [place] [address] [address] [place] [address] * Sodium (06/17/2022 8:06 AM CDT) Sodium, S 142 135 - 145 mmol/L 06/17/2022 9:14 AM CDT DTL Blood (Blood, Venous) 06/17/2022 8:06 AM CDT 06/17/2022 8:46 AM CDT Shahid Monte M.D. LAB BLOOD ADD-ON Performing Organization Address [facility] Co de Phone Number [facility] [address] [place] [address], [facility]] [address] [place] [address] * Potassium (06/17/2022 8:06 AM CDT) Potassium, S 4.2 3.6 - 5.2 mmol/L 06/17/2022 9:14 AM CDT DTL Blood (Blood, Venous) 06/17/2022 8:06 AM CDT 06/17/2022 8:46 AM CDT Shahid Monte M.D. LAB BLOOD ADD-ON [facility] [address] [place] [address], [facility] [address] [place] [address] * (ABNORMAL) Glucose, Fasting (06/17/2022 8:06 AM CDT) Glucose, P 114(H) 70 - 100 mg/dL 06/17/2022 9:09 AM CDT DTL Last Intake 12 hr 06/17/2022 8:47 AM CDT DTL Blood (Blood, Venous) 06/17/2022 8:06 AM CDT 06/17/2022 8:47 AM CDT Shahid Monte M.D. LAB BLOOD NON ADD-O N Performing Organization Address City/[facility] Co de Phone Number [facility] [address] [place] [address], [facility] [address] [place] [address] * Creatinine with Estimated GFR (06/17/2022 8:06 AM CDT) Creatinine 1.02 0.59 - 1.04 mg/dL 06/17/2022 9:14 AM CDT DTL Estimated GFR (eGFR) 63 >=60 mL/min/BSA 06/17/2022 9:14 AM CDT DTL Comment: Estimated GFR calculated using the 2020 CKD_EPI creatinine equation. Blood (Blood, Venous) 06/17/2022 8:06 AM CDT 06/17/2022 8:46 AM CDT Shahid Monte M.D. LAB BLOOD ADD-ON [facility] [address] [place] [address], [facility] [address] [place] [address] from Last 3 Months or Most Recently Relevant to Health Maintenance Advance Directives For more information, please contact: [phone] Documents on File Type Date Recorded Patient Advisory Intern Expl anation Advance Directives 09/10/2022 6:47 AM [...]
--- OUTSIDE RECORDS SUMMARY | 2023-07-27 09:09 | XMS_ITS | Encounter Summary ---
Author Name Unknown Organization [facility] Address [address] [place] [address] Care Team Providers Care Compliance Representative Name Role Phone Unavailable Primary Care Provider Unavailabl e Reason for Visit * Reason Comments Dental Return Visit Insert PHAN Encounter Details Date Type Department Care Team (Late st Contact Info) Description 07/23/2023 12:30 PM CDT Office Visit Department of Dental Specialties in [place], [place] [address] [place] [address] Lisbet Zambrano B.D.S., M.S. [address] [place] [phone] Obstructive Sleep Apnea Adult (Primary Dx) Social History Tobacco Use Types Packs/Day Years Used Date Smoking Tobacco: Former Cigarettes 0 04/06/1977 - 04/06/1985 Smokeless Tobacco: Never Comments:Also smoker 1996 to 1999 Alcohol Use [...] How often do you attend chur or confucianism services? Never 08/06/2022 Do you belong to any clubs o r organizations such as mosque groups, unions, fraWearhaus or athletic groups, or school groups? Yes [...] and heating? Not hard at all 08/06/2022 [facility] of Occupat ional Health - Occupational Stress [...] place to sleep or slept in a fpc (including now)? No 08/06/2022 Nutrition Answer Date [...] Sex Assigned at Female 05/07/2018 4:20 PM SENIOR ELECTRICAL DESIGN ENGINEER Gender Identity Female 05/07/2018 4:20 PM SENIOR ELECTRICAL DESIGN ENGINEER Sexual Orientation Straight 05/07/2018 4: 20 PM SENIOR ELECTRICAL DESIGN ENGINEER documented as of this encounter Patient Instructions * Patient Instructions* Mary Wilson L.D.A. - 07/23/2023 12:30 PM CDT Instructions for advancement of oral sleep appliances Please use the following chart to monitor the advancement of your Prosomnus PHAN appliance. On week 3 you will begin to advance your appliance according to the chart below. On week 4, you will have a video visit with your Dental Sleep Team at which time you will discuss your progress and how much further to advance. Week Instructions 1 07/23/23 Get used to wearing your appliance. Upper 0 Lower 0 2 07/30/2023 Wear your appliance all night long, every night. Upper 0 Lower 0 3 08/06/2023 Start advancing your appliance. Upper 0 Lower 1 4 08/13/2023 Video visit with Dental Sleep team Advance your appliance. You will have a video visit with your Dental Sleep Team. Upper 2 Lower 0 5 08/20/2023 Advance your appliance. Upper 2 Lower 1 6 08/27/2023 Stop changing out trays. 7 09/03/2023 8 09/10/2023 * Attachments The following attachments cannot be sent through Care Everywhere. * Your Oral Appliance Therapy ([place]i) documented in this encounter Progress Notes * Lisbet Zambrano B.D.S., M.S. - 07/23/2023 12:30 PM CDT SUBJECTIVE Chelsea Mcintosh returns for insertion of Prosomnus PHAN Mandibular Advancement Device (MAD), for the management of obstructive sleep apnea. OBJECTIVE Sleep apnea appliance fitted to teeth adequately, Ms. Chelsea Mcintosh demonstrated ability to place and remove. ASSESSMENT / PLAN #1 Obstructive Sleep Apnea Adult Today, the Ms. Mcintosh was provided a receipt for the Mandibular Advancement Device along with the device warranty document. Additionally, a copy of the Durable Medical Equipment Supplier Standards was also provided to Ms. Mcintosh. Ms. Mcintosh received instructions regarding placement and removal. The treatment was explained verbally and the placement and removal of the device was demonstrated hands-on with visual guidance on the adjustment mechanism on the device. Specific adjustments to activate forward positioning in separate intervals will be reviewed by my dental executive staff assistant at the time of the follow-up visit in two weeks. Ms. Mcintosh is advised to use the appliance nightly over the next two weeks, gradually keeping the appliance in place throughout bedtime. She may begin by using it for short periods of time during the daytime, if unable to tolerate it right away at night time. Overall, the goal is to achieve maximum compliance with comfort of use, over the next two weeks. From its current protrusive position, the MAD may be advanced incrementally by 1 mm each week to either a maximum of 3 mm or until symptom resolution is noted in-terms of subjective sleep quality, whichever out of the two is achieved first. Ms. Mcintosh expressed an understanding of the content. documented in this encounter Plan of Treatment Upcoming Encounters Date Type Department Care Team (Late st Contact Info) Description 08/26/2023 2:00 PM CDT Telemedicine Department of Dental Specialties in [place], [place] [address] [place] [phone] Lisbet Zambrano B.D.S., M.S. [address] [place] [address] documented as of this encounter Procedures Procedure Name Priority Date/Time Associated Diagnosis Comments INSERT Routine 07/23/2023 12:30 PM CDT Obstructive Sleep Apnea Adult documented in this encounter Visit Diagnoses Diagnosis Obstructive Sleep Apnea Adult- Primary documented in this encounter
--- OUTSIDE RECORDS SUMMARY | 2023-07-27 09:09 | XMS_ITS | Encounter Summary ---
Author Name Unknown Organization [facility] Address [address] [place] [address] Care Team Providers Care Cadd Operator Name Role Phone Unavailable Primary Care Provider Unavailabl e Encounter Details Date Type Department Care Team (Late st Contact Info) Description 06/16/2023 Ancillary Procedure Department of Dental Specialties Social History Tobacco Use Types Packs/Day Years [...] often do you attend chur ch or oriental orthodox services? Never 08/06/2022 Do you belong to any clubs o r organizations such as jainism groups, unions, fraternal or athletic groups, or [...] and heating? Not hard at all 08/06/2022 [facility] [place] of Occupat ional Health - Occupational Stress [...] place to sleep or slept in a senior care (including now)? No 08/06/2022 Nutrition Answer Date [...] Sex Assigned at Female 05/07/2018 4:20 PM PASTRYCOOK Gender Identity Female 05/07/2018 4:20 PM PASTRYCOOK Sexual Orientation Straight 05/07/2018 4: 20 PM PASTRYCOOK documented as of this encounter Plan of Treatment Upcoming Encounters Date Type Department Care Team (Late st Contact Info) Description 08/26/2023 2:00 PM CDT Telemedicine Department of Dental Specialties in [place], [place] [address] [place] [phone] Lisbet Zambrano B.D.S., M.S. [address] [place] [address] documented as of this encounter Procedures Procedure Name Priority Date/Time Associated Diagnosis Comments DENTAL IMAGE EXAM Routine 06/16/2023 12: 00 AM CDT documented in this encounter Results * Face, Mouth-Dental Image Exam (06/16/2023 12:00 AM CDT) Narrative [facility] - 06/16/2023 12:05 PM CDT This order has been created and auto-finalized to support the import of images acquired without order. The clinical documentation to support these images can be found on the encounter that produced images. Provider Not In System IMG NON RAD IMAGI NG PROCEDURES [facility] NA documented in this encounter Visit Diagnoses Not on filedocumented in this encounter
--- OUTSIDE RECORDS SUMMARY | 2023-07-27 09:09 | XMS_ITS | Encounter Summary ---
Author Name Unknown Organization [facility] Address [address] [place] [address] Care Team Providers Care Application Infrastructure Engineer Name Role Phone Unavailable Primary Care Provider Unavailabl e Reason for Visit * Reason Comments Dental Sleep Medicine Consultation Yeung, Exam, and Scan Encounter Details Date Type Department Care Team (Latest Contact Info) Description 06/16/2023 7:30 AM CDT Comprehensive Visit Department of Dental Specialties in [place], [place] [address] [place] [phone] Lisbet Zambrano B.D.S., M.S. [address] [place] [address] Obstructive Sleep Apnea Adult (Primary Dx) Social [...] How often do you attend chur or mosque services? Never 08/06/2022 Do you belong to any clubs o r organizations such as hindu groups, unions, fraternal or athletic groups, or [...] and heating? Not hard at all 08/06/2022 [facility] [place] of Occupat ional Health - Occupational Stress [...] Sex Assigned at Female 05/07/2018 4:20 PM RETAIL SALES ASSOCIATE Gender Identity Female 05/07/2018 4:20 PM RETAIL SALES ASSOCIATE Sexual Orientation Straight 05/07/2018 4: 20 PM RETAIL SALES ASSOCIATE documented as of this encounter Consult Notes * Lisbet Zambrano B.D.S., M.S. - 06/16/2023 7:30 AM CDT SUBJECTIVE REASON FOR CONSULT Mrs. Chelsea Mcintosh is a 62 y.o. female patient referred for the use of a Mandibular Advancement Device in the management of Obstructive Sleep Apnea. Referring Physician: Silva Maloney from [facility] referred Mrs. Chapman. The reason for today's visit was to proceed with radiographic evaluation, comprehensive oral examination and dental impressions and bite registration for the fabrication of a Mandibular Advancement Device. HISTORY OF PRESENT ILLNESS Mrs. Chelsea Mcintosh was diagnosed with Obstructive Sleep Apnea following the evaluation and assessment with the following study type Home Sleep Apnea Test completed on 10/19/2022 . CPAP Tolerance: Intolerant Reason(s) for CPAP Intolerance: claustrophobia; inability to sleep with the equipment in place Comorbid Medical History: hypertension; cardiovascular disease RECENT SLEEP HISTORY AHI: 26.4 RDI: 27.7 Lowest Oxygen Saturation (%): 81% [place] Sleepiness Score: 6 Reason for sleep study: snoring; daytime sleepiness; tiredness; unrestful sleep History of jaw surgery: no Nasal breathing: abnormal; Mouth breather DENTAL HISTORY General Dentist Name: Dr. Jhonatan Kuo Dental problems - currently has no dental problems. She does not anticipate future dental work. Frequency of routine dental visit: 6 month History of jaw or taoist pain in past 30 days?: no History of habits such as teeth clenching and grinding?: no Current use of Occlusal Guard: no Gag reflex: moderate OBJECTIVE PHYSICAL EXAMINATION Mandibular range of motion (mm): 52 Right lateral excursive (mm): 14 Left lateral excursive (mm): 12 Teeth mobility: absent Temporomandibular joint palpation: non-tender [place] palpation: non-tender Temporomandibular joint noises: reciprocal clicking Temporomandibular reciprocal clicking: bilateral Neck - negative lymphadenopathy Soft tissue lesions: absent Dental occlusal contacts: generalized teeth contacts Overbite (mm): 4 Overjet (mm): 5 Dental attrition: mild Mallampati class: Class III Dentition reveals >8 teeth in the maxilla and >8 teeth in the mandible Caries - no evidence of caries requiring local dentist attention Periodontal status - no evidence of periodontal concerns DIAGNOSTICS A Panoramic radiograph taken today, revealed bilateral normal condylar contours, no bony pathology.Sinus appears clear. ASSESSMENT / PLAN #1 Obstructive Sleep Apnea Adult Based on the evaluation today, I do consider to be a candidate for the use of a Mandibular Advancement Device in the management of Obstructive Sleep Apnea. I reviewed with Ms. Mcintosh the mechanism by which the MAD reduces the risk for upper airway collapsibility by advancing the mandible. The risks and benefits with the use of the MAD were reviewed in detail. Specifically, the risk of developing self-limiting mild TMJ disorder, initially increased and later reduced salivary flow, the risk for teeth mobility, the risk with aggravating previously weakened dental restorations, the 30-40% probability of developing irreversible occlusal changes were reviewed. After the initial fitting and establishing patient comfort with the MAD use, Ms. Mcintosh would be encouraged to return to the Sleep Physician for the subjective and objective evaluation of the MAD's effectiveness in managing the symptoms of Obstructive Sleep Apnea. Ms. Mcintosh will be directed to the Sleep Physician for further management of sleep-related breathing disorder. At the time of MAD insert, the method to self-titrate the device to optimal mandibular protrusion will be reviewed with Ms. Mcintosh. She expressed an understanding of the content. Estimated cost of treatment was discussed with Ms. Mcintosh. Ms. Mcintosh's insurance will be billed,and understands that she will be responsible for anything her insurance does not cover. Ms. Mcintoshacknowledged and agreed to proceed with treatment. The patient was ready to begin therapy, therefore maxillary and mandibular impressions were obtained this visit. Measurement of patient's protrusive range of motion was achieved with a Joaquim Gauge -6 to +7. Gauge position +1. A Prosomnus PHAN will be ordered and inserted at next visit. Total visit time 45 minutes. documented in this encounter Plan of Treatment Upcoming Encounters Date Type Department Care Team (Late st Contact Info) Description 08/26/2023 2:00 PM CDT Telemedicine Department of Dental Specialties in [place], [place] [address] [place] [phone] Lisbet Zambrano B.D.S., M.S. [address] [place] [address] documented as of this encounter Procedures Procedure Name Priority Date/Time Associated Diagnosis Comments MEDICAL PANOREX Routine 06/18/2023 3:42 PM CDT Obstructive Sleep Apnea Adult IMPRESSION Routine 06/16/2023 7:30 AM CDT Obstructive Sleep Apnea Adult documented in this encounter Results * [facility] (06/18/2023 3:42 PM CDT) Narrative Lisbet Zambrano B.D.S., M.S. - 06/18/2023 3:42 PM CDT A Panoramic radiograph taken today, revealed bilateral normal condylar contours, no bony pathology. Sinus appears clear. Lisbet Zambrano B.D.S., M.S. DENTAL ORDERABLE S documented in this encounter Visit Diagnoses Diagnosis Obstructive Sleep Apnea Adult- Primary documented in this encounter
--- OUTSIDE RECORDS SUMMARY | 2023-07-27 09:09 | XMS_ITS | Clinical Summary ---
Author Name Unknown Organization [facility] Address [place], [place] [address] Care Team Providers Care Slice Plug Cutter Operator Name Role Phone Twin Hartman MD Primary Care Provider [phone] Social History Tobacco Use Types Packs/Day Years Used Date Smoking Tobacco: Never Assessed Sex and Gender Information Value Date Recorded Sex Assigned at Not on file Gender Identity Not on file Sexual Orientation Not on file Obstetrics History Plan of Treatment Health Maintenance Due Date Last Done Comments Tdap 1972 Depression screening for age 12+ 1973 HIV for age 15-65 1976 BMI (ht and wt on same day) for age 18+ 12/03/1979 Hepatitis C screening for age 18-79 12/03/1979 Tetanus booster 1981 Colonoscopy through age 75 2006 Lipids for age 45-75 2006 Mammogram for age 45-75 2006 Zoster (shingles) series for age 50+ (1 of 2) 12/03/2011 COVID-19 vaccine series (2022-24 season) 2022 01/12/2022, 11/10/2021, 01/12/2021, Additional history exists Pap test for age 21-65 05/14/2023 , 05/14/2020, 02/13/2014, Additional history exists Influenza for age 50-64 12/06/2023 Pneumococcal series for age 6-64 Aged Out No longer eligible based on patient's age to complete this topic Procedures Procedure Name Priority Date/Time Associated Diagnosis Comments SPECIAL DIET COOK THIN PREP PAP SCREEN IMAGED Routine 05/14/2020 9:15 AM SUPPORT WORKER from Last 3 Months or Most Recently Relevant to Health Maintenance Results * SPECIAL DIET COOK THIN PREP PAP SCREEN IMAGED (05/14/2020 9:15 AM SUPPORT WORKER) Case Report Gynecologic Cytology Report ? Case: [id number] ? Authorizing Provider: ??Trish Roman MD ?Collected: ? 05/14/2020 0915 ? Ordering Location: ? [facility] ?Received: ?05/14/2020 1816 ? First Screen: ?Delmy Caceres ? Rescreen: ?Brittany Lyn ? Specimen: ?SPECIAL DIET COOK ThinPrep Vial Screening, Cervical/Vaginal ? 05/24/2020 5:42 AM SUPPORT WORKER [facility] INTERPRETATION/ RESULT NEGATIVE FOR INTRAEPITHELIAL LESION OR MALIGNANCY (NIL) (none) 05/24/2020 5:42 AM SUPPORT WORKER [facility] Ring [facility] IMEN ADEQUACY Satisfactory for evaluation Endocervical component present 05/24/2020 5:42 AM SUPPORT WORKER [facility] Ring [facility] HPV REQUEST HPV and PAP 05/24/2020 5:42 AM SUPPORT WORKER [facility] Date of LMP 05/24/2020 5:42 AM SUPPORT WORKER [facility] Comment:2011 Last Pap Date 02/13/2014 05/24/2020 5:42 AM SUPPORT WORKER [facility] Last Pap Result NIL 5:42 AM SUPPORT WORKER [facility] Menstrual Status 05/24/2020 5:42 AM SUPPORT WORKER [facility] Additional Information 05/24/2020 5:42 AM [facility] Comment: Interpreted at [facility] - [address], [place] [address] Automated Review Successful 05/24/2020 5:42 AM [facility] Ring [facility] Comment:Specimen processed s uccessfully by automated rock cutter device, ThinPrep Imaging System, [employer] ANCILLARY TESTING SPECIAL DIET COOK HPV Ordered, Please see separate report 05/24/2020 5:42 AM [facility] Note The pap test is a screening technique, not a diagnostic procedure. It is used primarily to screen for squamous cancers and precursor lesions. Published studies have shown that it is subject to both false negative and false positive results. The pap test should not be used as the sole means to diagnose or exclude pre-malignant and malignant lesions. 05/24/2020 5:42 AM [facility] Ring [facility] Other (Cervical/Vagina l) 05/14/2020 9:15 AM SUPPORT WORKER 05/14/2020 6:16 PM SUPPORT WORKER Trish Roman MD PATHOLOGY/CYTOLOGY [facility] [address] [place] [address], from Last 3 Months or Most Recently Relevant to Health Maintenance Care Teams Slice Plug Cutter Operator Relationship Specialty Start Date End Date Twin Hartman MD [address] [place] [address] PCP - General Family Practice 12/15/17
--- NOTE | 2023-07-27 09:15 | MR_ITS ---
Patient: ALF COOLEY Facility:?[facility] Patient ID:?[id number] Site Patient ID:?[id number]. 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 INDICATION FOR BREAST MRI: Screening breast MRI in this high-risk woman. COMPARISON STUDIES: Mammogram 01/20/2023, breast MRI 06/10/2022 and 05/29/2021. CONTRAST: 20 cc of Dotarem. TECHNIQUE: The patient was positioned prone using a breast coil. Multiple imaging sequences were obtained using 1-1.5 mm thick slices with no gap. The image sequences include T2-weighted STIR in the axial plane, T1-weighted nonfat-saturated gradient echo in the axial plane, pre- and post-contrast T1-weighted FLASH 3D with fat suppression in the axial plane, and T1-weighted FLASH high resolution 3D with fat suppression in the sagittal plane. Image post-processing was performed on a Resolver workstation. Complex 3D rendering including maximum intensity projections (MIPS) and volumetric renderings were obtained to optimize visualization of the extent of pathology and relationship to the nipple, skin, and chest wall. This aids in determining feasibility of breast conservation surgery. Subtraction, multiplanar reconstruction, mean curve determination, and angiogenesis mapping were also performed. The study was technically adequate. FINDINGS: Amount of Fibroglandular Tissue: Scattered fibroglandular tissue. Breast Background Enhancement: Mild to moderate. RIGHT Breast: Postsurgical changes. No suspicious areas of enhancement. LEFT Breast: Postsurgical changes. No suspicious areas of enhancement. Lymph Nodes: No adenopathy. IMPRESSIONS AND RECOMMENDATIONS: Benign BILATERAL postsurgical change. No MR evidence of malignancy. Continue annual screening mammography as clinically indicated screening breast MRI. The mammogram and MRI should be offset by six-month intervals of time. BI-RADS Category 2: Benign Dictated by Shanti Hutchison MD @ 07/30/2023 11:35:06 AM/CRL:khurram RENE/Dictated by: Shanti Hutchison MD @ 07/30/2023 11:35:00 AM Signed by:?Shanti Hutchison MD @07/31/2023 10:18:08 AM (Electronic Signature)
== END 2023-07-27 09:05 | disposition home or self-care (01) ==
LOC: MRI 09:06
PROVIDERS: PCP Family Medicine; Visit Provider Physician Assistant
DX: Z12.39 Encounter for other screening for malignant neoplasm of breast (principal); N60.99 Unspecified benign mammary dysplasia of unspecified breast
CPT/HCPCS: 77049; A9575

== ENCOUNTER 2023-07-28 09:25 | Outpatient (CLI) | payer BC, SELFPAY ==
--- OUTSIDE RECORDS SUMMARY | 2023-07-28 09:32 | XMS_ITS | Clinical Summary ---
Author Name Unknown Organization [facility] Address [address] [place] [address] Care Team Providers Care Clinical Lab Technologist Name Role Phone Unavailable Primary Care Provider Unavailabl e Source Comments Patient records contain information from all sites at [facility]. For routine questions regarding patient records, call [phone] during business hours, M-F 8:00 AM - 5:00 PM Central Time. Record requests for emergency care only can be directed to [phone] at any time.[facility] Allergies Active Allergy Reactions Criticality Noted Date [...] Office Visit Department of Dental Specialties in [place], [place] [address] [place] [address] Lisbet Zambrano B.D.S., M.S. Obstructive Sleep Apnea Adult (Primary Dx) 06/16/2023 7:30 AM CDT Comprehensive Visit Department of Dental Specialties in [place], [place] [address] [place] [address] Lisbet Zambrano B.D.S., M.S. Obstructive Sleep Apnea [...] Sister 2 Tonja Kidney disease Maternal Grandfather Gibson Arthritis Mother Latisha Breast cancer Mother Latisha [...] Father's Sister 1 Steffi Father's Sister 2 Tojna Maternal Grandfather Gibson Mother Latisha Mother's Sister [...] How often do you attend chur or oriental orthodox services? Never 08/06/2022 Do you belong to any clubs o r organizations such as temple groups, unions, fraternal or athletic groups, or [...] and heating? Not hard at all 08/06/2022 [facility] - Occupational Stress Questionnaire Answer [...] place to sleep or slept in a long-term (including now)? No 08/06/2022 Nutrition Answer Date [...] Sex Assigned at Female 05/07/2018 4:20 PM TERRA COTTA ROOFER Gender Identity Female 05/07/2018 4:20 PM TERRA COTTA ROOFER Sexual Orientation Straight 05/07/2018 4: 20 PM TERRA COTTA ROOFER Last Filed Vital Signs Vital Sign Reading [...] CDT Telemedicine Department of Dental Specialties in [place], [place] [address] [place] [phone] Lisbet Zambrano B.D.S., M.S. [address] [place] [address] Health Maintenance Due Date Last Done Comments [...] M.D. LAB BLOOD ADD-ON Performing Organization Address City/[facility]/ZIP Co de Phone Number [facility] [address] 200 [place] [address] * Sodium (06/17/2022 8:06 AM CDT) Sodium, S 142 135 - 145 mmol/L 06/17/2022 9:14 AM CDT DTL Blood (Blood, Venous) 06/17/2022 8:06 AM CDT 06/17/2022 8:46 AM CDT Shahid Monte M.D. LAB BLOOD ADD-ON Performing Organization Address City/[facility]/ZIP Co de Phone Number [facility] [address] 200 [place] [address] * Potassium (06/17/2022 8:06 AM CDT) Potassium, S 4.2 3.6 - 5.2 mmol/L 06/17/2022 9:14 AM CDT DTL Blood (Blood, Venous) 06/17/2022 8:06 AM CDT 06/17/2022 8:46 AM CDT Shahid Monte M.D. LAB BLOOD ADD-ON Performing Organization Address [facility] Co de Phone Number [facility] 200 [place] [address], [facility] 200 [place] [address] * (ABNORMAL) Glucose, Fasting (06/17/2022 8:06 AM CDT) Glucose, P 114(H) 70 - 100 mg/dL 06/17/2022 9:09 AM CDT DTL Last Intake 12 hr 06/17/2022 8:47 AM CDT DTL Blood (Blood, Venous) 06/17/2022 8:06 AM CDT 06/17/2022 8:47 AM CDT Shahid Monte M.D. LAB BLOOD NON ADD-O N Performing Organization Address [facility] Co de Phone Number [facility] 200 [place] [address], [facility] 200 [place] [address] * Creatinine with Estimated GFR (06/17/2022 8:06 AM CDT) Creatinine 1.02 0.59 - 1.04 mg/dL 06/17/2022 9:14 AM CDT DTL Estimated GFR (eGFR) 63 >=60 mL/min/BSA 06/17/2022 9:14 AM CDT DTL Comment: Estimated GFR calculated using the 2020 CKD_EPI creatinine equation. Blood (Blood, Venous) 06/17/2022 8:06 AM CDT 06/17/2022 8:46 AM CDT Shahid Monte M.D. LAB BLOOD ADD-ON [facility] [address] [place] [address], [place] DTL [facility] [address] [place] [address] from Last 3 Months or Most Recently Relevant to Health Maintenance Advance Directives For more information, please contact: [phone] Documents on File Type Date Recorded Patient Pigs Feet Cleaner Expl anation Advance Directives 09/10/2022 6:47 AM [...]
--- OUTSIDE RECORDS SUMMARY | 2023-07-28 09:33 | XMS_ITS ---
Author Name Unknown Organization [facility] Address [address] [place] [address] Care Team Providers Care Lamp Inspector Name Role Phone Unavailable Unavailable Unavailable Surgery Details Not on file Complications Check Surgery Details section. Procedure Estimated Blood Loss Check Surgery Details section. Procedure Findings Check Surgery Details section. Procedure Specimens Taken Check Surgery Details section.
--- OUTSIDE RECORDS SUMMARY | 2023-07-28 09:33 | XMS_ITS | Encounter Summary ---
Author Name Unknown Organization [facility] Address [address] [place] [address] Care Team Providers Care Grinding Mill Operator Name Role Phone Unavailable Primary Care Provider Unavailabl e Reason for Visit * Reason Comments Dental Return Visit Insert PHAN Encounter Details Date Type Department Care Team (Late st Contact Info) Description 07/23/2023 12:30 PM CDT Office Visit Department of Dental Specialties in [place], [place] [address] [place] [address] Lisbet Zambrano B.D.S., M.S. [address] [place] [phone] Obstructive Sleep Apnea Adult (Primary Dx) Social [...] How often do you attend chur or anglican services? Never 08/06/2022 Do you belong to any clubs o r organizations such as yarsanism groups, unions, fraMitokyne or athletic groups, or school groups? Yes [...] and heating? Not hard at all 08/06/2022 [facility] [place] of Occupat ional Health - Occupational Stress [...] place to sleep or slept in a group home (including now)? No 08/06/2022 Nutrition Answer Date [...] Sex Assigned at Female 05/07/2018 4:20 PM CAMPUS RECEPTIONIST Gender Identity Female 05/07/2018 4:20 PM CAMPUS RECEPTIONIST Sexual Orientation Straight 05/07/2018 4: 20 PM CAMPUS RECEPTIONIST documented as of this encounter Patient Instructions [...] Care Everywhere. * Your Oral Appliance Therapy ([place]gent[place]) documented in this encounter Progress Notes * [...] intervals will be reviewed by my dental baking assistant at the time of the follow-up [...] CDT Telemedicine Department of Dental Specialties in [place], [place] [address] [place] [phone] Lisbet Zambrano B.D.S., M.S. [address] [place] [address] documented as of this encounter Procedures Procedure Name Priority Date/Time Associated Diagnosis Comments INSERT Routine 07/23/2023 12:30 PM CDT Obstructive Sleep Apnea Adult documented in this encounter Visit Diagnoses Diagnosis Obstructive Sleep Apnea Adult- Primary documented in this encounter
--- OUTSIDE RECORDS SUMMARY | 2023-07-28 09:33 | XMS_ITS | Referral Summary ---
Author Name Unknown Organization [facility] Address [address] [place] [address] Care Team Providers Care Pool Technician Name Role Phone Unavailable Primary Care Provider Unavailabl e Source Comments Patient records contain information from all sites at [facility]. For routine questions regarding patient records, call [phone] during business hours, M-F 8:00 AM - 5:00 PM Central Time. Record requests for emergency care only can be directed to [phone] at any time.[facility] Encounters Date Type Department Care Team Description 07/23/2023 12:30 PM CDT Office Visit Department of Dental Specialties in [place], [place] [address] [place] [address] Lisbet Zambrano B.D.S., M.S. Obstructive Sleep Apnea Adult (Primary Dx) 06/16/2023 Ancillary Procedure Department of Dental Specialties 06/16/2023 7:30 AM CDT Comprehensive Visit Department of Dental Specialties in [place], [place] [address] [place] [address] Lisbet Zambrano B.D.S., M.S. Obstructive Sleep Apnea [...] often do you attend chur ch or christianity services? Never 08/06/2022 Do you belong to any clubs o r organizations such as jain groups, unions, fraternal or athletic groups, or [...] place to sleep or slept in a fci (including now)? No 08/06/2022 Nutrition Answer Date [...] Sex Assigned at Female 05/07/2018 4:20 PM MEDICAL CODING AUDITOR Gender Identity Female 05/07/2018 4:20 PM MEDICAL CODING AUDITOR Sexual Orientation Straight 05/07/2018 4: 20 PM MEDICAL CODING AUDITOR Last Filed Vital Signs Vital Sign Reading [...] CDT Telemedicine Department of Dental Specialties in [place], [place] [address] [place] [address] Lisbet Zambrano B.D.S., M.S. [address] [place] [address] Procedures Procedure Name Priority Date/Time Associated Diagnosis [...] Image Exam (06/16/2023 12:00 AM CDT) Narrative IINC - 06/16/2023 12:05 PM CDT This order has been created and auto-finalized to support the import of images acquired without order. The clinical documentation to support these images can be found on the encounter that produced images. Provider Not In System IMG NON RAD IMAGI NG PROCEDURES [facility] NA * (ABNORMAL) Lipid Panel (06/17/2022 8:06 [...] M.D. LAB BLOOD ADD-ON Performing Organization Address City/[facility]/ZIP Co de Phone Number [facility] [place] [address] [place], [place] [phone] [place] [address] 200 [place] [address] * Sodium (06/17/2022 8:06 AM CDT) Sodium, S 142 135 - 145 mmol/L 06/17/2022 9:14 AM CDT DTL Blood (Blood, Venous) 06/17/2022 8:06 AM CDT 06/17/2022 8:46 AM CDT Shahid Monte M.D. LAB BLOOD ADD-ON Performing Organization Address [facility] Co de Phone Number [facility] [place] 200 [place] [address], [facility] 200 [place] [address] * Potassium (06/17/2022 8:06 AM CDT) Potassium, S 4.2 3.6 - 5.2 mmol/L 06/17/2022 9:14 AM CDT DTL Blood (Blood, Venous) 06/17/2022 8:06 AM CDT 06/17/2022 8:46 AM CDT Shahid Monte M.D. LAB BLOOD ADD-ON [facility] [place] [address] [place] [address], [facility] 200 [place] [address] * (ABNORMAL) Glucose, Fasting (06/17/2022 8:06 AM CDT) Glucose, P 114(H) 70 - 100 mg/dL 06/17/2022 9:09 AM CDT DTL Last Intake 12 hr 06/17/2022 8:47 AM CDT DTL Blood (Blood, Venous) 06/17/2022 8:06 AM CDT 06/17/2022 8:47 AM CDT Shahid Monte M.D. LAB BLOOD NON ADD-O N Performing Organization Address City/[facility] Co de Phone Number [facility] [place] [address] [place] [address], [facility] 200 [place] [address] * Creatinine with Estimated GFR (06/17/2022 8:06 AM CDT) Creatinine 1.02 0.59 - 1.04 mg/dL 06/17/2022 9:14 AM CDT DTL Estimated GFR (eGFR) 63 >=60 mL/min/BSA 06/17/2022 9:14 AM CDT DTL Comment: Estimated GFR calculated using the 2020 CKD_EPI creatinine equation. Blood (Blood, Venous) 06/17/2022 8:06 AM CDT 06/17/2022 8:46 AM CDT Shahid Monte M.D. LAB BLOOD ADD-ON [facility] [place] 200 [place] [address], [facility] 200 [place] [address] from Last 3 Months or Most Recently Relevant to Health Maintenance Advance Directives For more information, please contact: [phone] Documents on File Type Date Recorded Patient Services Mgr Expl anation Advance Directives 09/10/2022 6:47 AM [...]
--- OUTSIDE RECORDS SUMMARY | 2023-07-28 09:33 | XMS_ITS ---
Author Name Unknown Organization [facility] Address [address] [place] [address] Care Team Providers Care Die Cutter Apprentice Name Role Phone Unavailable Primary Care Provider [...] On Elapsed Days Session Dose Total Dose [id number] 06/18/2018 18 267 cGy 4,005 cGy
--- OUTSIDE RECORDS SUMMARY | 2023-07-28 09:33 | XMS_ITS | Clinical Summary ---
Author Name Unknown Organization [email or web address] [facility] Address [place], [place] [address] Care Team Providers Care Psychological Operations Officer Name Role Phone wTin Hartman MD Primary Care Provider [phone] Social History Tobacco Use Types Packs/Day Years [...] Procedure Name Priority Date/Time Associated Diagnosis Comments UTILITY WORKER PRODUCTION THIN PREP PAP SCREEN IMAGED Routine 05/14/2020 9:15 AM OIL DERRICK OPERATOR from Last 3 Months or Most Recently Relevant to Health Maintenance Results * UTILITY WORKER PRODUCTION THIN PREP PAP SCREEN IMAGED (05/14/2020 9:15 AM OIL DERRICK OPERATOR) Case Report Gynecologic Cytology Report ? Case: [id number] ? Authorizing Provider: ??Trish Roman MD ?Collected: ? 05/14/2020 0915 ? Ordering Location: ? [facility] ?Received: ?05/14/2020 1816 ? First Screen: ?Delmy Caceres ? Rescreen: ?Brittany Lyn ? Specimen: ?UTILITY WORKER PRODUCTION ThinPrep Vial Screening, Cervical/Vaginal ? 05/24/2020 5:42 AM OIL DERRICK OPERATOR [employer] INTERPRETATION/ RESULT NEGATIVE FOR INTRAEPITHELIAL LESION OR MALIGNANCY (NIL) (none) 05/24/2020 5:42 AM OIL DERRICK OPERATOR [facility] [employer] [facility] IMEN ADEQUACY Satisfactory for evaluation Endocervical component present 05/24/2020 5:42 AM OIL DERRICK OPERATOR [facility] [employer] [facility] HPV REQUEST HPV and PAP 05/24/2020 5:42 AM OIL DERRICK OPERATOR [facility] Date of LMP 05/24/2020 5:42 AM OIL DERRICK OPERATOR [facility] Comment:2011 Last Pap Date 02/13/2014 05/24/2020 5:42 AM OIL DERRICK OPERATOR [facility] Last Pap Result NIL 5:42 AM OIL DERRICK OPERATOR [facility] Menstrual Status 05/24/2020 5:42 AM OIL DERRICK OPERATOR [facility] Additional Information 05/24/2020 5:42 AM [facility] Comment: Interpreted at [facility] [employer] [facility] - [address] [place] [address] [address] Automated Review Successful 05/24/2020 5:42 AM [facility] [employer] [facility] Comment:Specimen processed s uccessfully by automated semiconductor dies loader device, ThinPrep Imaging System, [employer] ANCILLARY TESTING UTILITY WORKER PRODUCTION HPV Ordered, Please see separate report 05/24/2020 5:42 AM [facility] Note The pap test is a screening technique, not a diagnostic procedure. It is used primarily to screen for squamous cancers and precursor lesions. Published studies have shown that it is subject to both false negative and false positive results. The pap test should not be used as the sole means to diagnose or exclude pre-malignant and malignant lesions. 05/24/2020 5:42 AM [facility] [employer] [facility] Other (Cervical/Vagina l) 05/14/2020 9:15 AM OIL DERRICK OPERATOR 05/14/2020 6:16 PM OIL DERRICK OPERATOR Trish Roman MD PATHOLOGY/CYTOLOGY [facility] [address] [place] [address], from Last 3 Months or Most Recently Relevant to Health Maintenance Care Teams Psychological Operations Officer Relationship Specialty Start Date End Date Twin Hartman MD [address] [place] [address] PCP - General Family Practice 12/15/17
--- OUTSIDE RECORDS SUMMARY | 2023-07-28 09:33 | XMS_ITS | Encounter Summary ---
Author Name Unknown Organization [facility] Address [address] [place] [address] Care Team Providers Care Seasonal Package Handler Name Role Phone Unavailable Primary Care Provider [...] often do you attend chur ch or protestant services? Never 08/06/2022 Do you belong to any clubs o r organizations such as zoroastrianism groups, unions, fraternal or athletic groups, or [...] and heating? Not hard at all 08/06/2022 [facility] [place] of Occupat ional Health - Occupational Stress [...] place to sleep or slept in a detention (including now)? No 08/06/2022 Nutrition Answer Date [...] Sex Assigned at Female 05/07/2018 4:20 PM STONE MASON Gender Identity Female 05/07/2018 4:20 PM STONE MASON Sexual Orientation Straight 05/07/2018 4: 20 PM STONE MASON documented as of this encounter Plan of Treatment Upcoming Encounters Date Type Department Care Team (Late st Contact Info) Description 08/26/2023 2:00 PM CDT Telemedicine Department of Dental Specialties in [place], [place] [address] [place] [phone] Lisbet Zambrano B.D.S., M.S. [address] [place] [address] documented as of this encounter Procedures Procedure [...]
--- OUTSIDE RECORDS SUMMARY | 2023-07-28 09:33 | XMS_ITS | Encounter Summary ---
Author Name Unknown Organization [facility] Address [address] [place] [address] Care Team Providers Care Tie Hacker Name Role Phone Unavailable Primary Care Provider Unavailabl e Reason for Visit * Reason Comments Dental Sleep Medicine Consultation Yeung, Exam, and Scan Encounter Details Date Type Department Care Team (Latest Contact Info) Description 06/16/2023 7:30 AM CDT Comprehensive Visit Department of Dental Specialties in [place], [place] [address] [place] [address] Lisbet Zambrano B.D.S., M.S. [address] [place] [address] Obstructive Sleep Apnea Adult (Primary Dx) Social [...] How often do you attend chur or worship services? Never 08/06/2022 Do you belong to any clubs o r organizations such as yarsani groups, unions, fraternal or athletic groups, or [...] and heating? Not hard at all 08/06/2022 [facility] [place] of Occupat ional Health - Occupational Stress [...] place to sleep or slept in a chcf (including now)? No 08/06/2022 Nutrition Answer Date [...] Sex Assigned at Female 05/07/2018 4:20 PM BARREL REPAIRER Gender Identity Female 05/07/2018 4:20 PM BARREL REPAIRER Sexual Orientation Straight 05/07/2018 4: 20 PM BARREL REPAIRER documented as of this encounter Consult Notes * Lisbet Zambrano B.D.S., M.S. - 06/16/2023 7:30 AM CDT SUBJECTIVE REASON FOR CONSULT Mrs. Chelsea Mcintosh is a 62 y.o. female patient referred for the use of a Mandibular Advancement Device in the management of Obstructive Sleep Apnea. Referring Physician: Silva Maloney from [facility] for Sleep Medicine referred Mrs. Chapman. The [...] RDI: 27.7 Lowest Oxygen Saturation (%): 81% [place] Sleepiness Score: 6 Reason for sleep study: snoring; daytime sleepiness; tiredness; unrestful sleep History of jaw surgery: no Nasal breathing: abnormal; Mouth breather DENTAL HISTORY General Dentist Name: Dr. Jhonatan uKo Dental problems - currently has no dental problems. She does not anticipate future dental work. Frequency of routine dental visit: 6 month History of jaw or advent pain in past 30 days?: no History [...] CDT Telemedicine Department of Dental Specialties in [place], [place] [address] [place] [address] Lisbet Zambrano B.D.S., M.S. [address] [place] [address] documented as of this encounter Procedures Procedure [...]
== END 2023-07-28 09:26 | disposition home or self-care (01) ==
PROVIDERS: PCP Family Medicine; Visit Provider Family Medicine
DX: E78.5 Hyperlipidemia, unspecified (principal); I10 Essential (primary) hypertension; E05.90 Thyrotoxicosis, unspecified without thyrotoxic crisis or storm; Z11.59 Encounter for screening for other viral diseases
CPT/HCPCS: 80053; 80061; 82043; 82570; 84443; 86803

== ENCOUNTER 2023-08-06 14:36 | Outpatient (RCR) | payer BC, SELFPAY | END 2024-02-02 23:59 | disposition home or self-care (01) | LOC: CCIC 14:36 | PROVIDERS: PCP Family Medicine; Visit Provider Physician Assistant | DX: D05.12 Intraductal carcinoma in situ of left breast (principal); Z17.0 Estrogen receptor positive status [ER+] | CPT/HCPCS: 99213; G0463 ==

== ENCOUNTER 2023-08-11 16:02 | Outpatient (RCR) | payer BC, SELFPAY | END 2023-12-09 23:59 | disposition home or self-care (01) | PROVIDERS: PCP Family Medicine; Visit Provider Family Medicine | DX: M25.551 Pain in right hip (principal); M54.50 Low back pain, unspecified; Z51.89 Encounter for other specified aftercare | CPT/HCPCS: 97110; 97140; 97161 ==

== ENCOUNTER 2024-01-22 15:08 | Outpatient (CLI) | payer BC, SELFPAY ==
--- OUTSIDE RECORDS SUMMARY | 2024-01-22 15:11 | XMS_ITS ---
Author Organization [facility] Address [address] [place] [address] Care Team Providers Care Resident Assistant Cna Name Role Phone Unavailable Primary Care Provider [...] On Elapsed Days Session Dose Total Dose [id number] 06/18/2018 18 267 cGy 4,005 cGy
--- OUTSIDE RECORDS SUMMARY | 2024-01-22 15:11 | XMS_ITS | Encounter Summary ---
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 [address] [place] [address] Phone: tel: fax: 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 [address] [place] [address] Phone: tel: fax: [facility] Referral ID Status Reason Start Date Expiration Date Visits Re quested Visits Authorized [id number] Closed 11/11/2023 11/10/2024 1 1 Encounter Details Date Type Department Care Team (Latest Contact Info) Description 11/26/2023 10:54 AM CDT - 11/26/2023 11:59 PM CDT Hospital Encounter Department of Radiology, [facility], in [place], [place] [address] [place] [address] Shahid Monte M.D. 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 s a cocktail or glass o [employer] Answer Date Recorded In the past [address] [employer] [address], gas, oil, or water [employer] threatened to shut off services in your home? No 08/24/2023 Humiliation, Afraid, Rape, and Kick questionnair e [...] often do you attend chur ch or episcopalian services? Never 08/06/2022 Do you belong to any clubs o r organizations such as buddhism groups, unions, fraternal or athletic groups, or [...] and heating? Not hard at all 08/06/2022 [facility] - Occupational Stress [...] to strenuous exercise (like a brisk walk)? 2 days 08/24/2023 On average, how many minutes do you engage in exercise at this level? 20 min 08/24/2023 Hunger Vital Sign Answer Date Recorded Within the past 12 months, y ou worried that your food would run out before you got the money to buy more. Never true 08/24/19 24 Within the past 12 months, t he food you bought just didn't last and you didn't have money to get more. Never true 08/24/2023 PRAPARE - Transportation Answer Date Re corded In the past 12 months, has l ack of transportation kept you from medical appointments or from getting medications? No 08/05 In the past 12 months, has l ack of transportation kept you from meetings, work, or from getting things needed for daily living? No 08/24/2023 Nutrition Answer Date Recorded On average, how many serving s of fruits and vegetables do you eat per day (serving size is equal to 1 cup or approximately the size of a tennis ball)? 3-5 08/24/2023 Dental Answer Date Recorded Dental: Regular Dentist Yes 08/07/19 Employment Answer Date Recorded Employment status Employed and actively working without restrictions 08/24/2023 Housing Stability Answer Date Recorded What is your living situation today? I have a [facility] place to live 08/24/2023 Education Answer Date Recorded What is the highest level of school you have completed or the highest degree you have received? Bachelor's degree (e.g., BA, AB, BS) 08/06/2022 Comments No Sex and Gender Information Value Date Recorded Sex Assigned at Female 05/07/2018 4:20 PM LEATHER CRAFTER Legal Sex Female 7:47 PM LEATHER CRAFTER Gender Identity Female 05/07/2018 4:20 PM LEATHER CRAFTER Sexual Orientation Straight 05/07/2018 4: 20 PM LEATHER CRAFTER documented as of this encounter Medications at Time of Discharge amLODIPine (NORVASC) 5 mg tablet Take 1 tablet by mouth daily. 10/30/2016 cetirizine (ZyrTEC) 10 mg tablet Take 1 tablet by mouth daily. 10/30/2016 cholecalciferol, vitamin D3, 25 mcg (1,000 unit) tablet,chewable 50 mcg daily. 05/05/2022 clobetasoL 0.025 % cream as needed. 05/05/2022 diazePAM (VALIUM) 10 mg tablet as needed. 05/05/2022 FLUoxetine (PROzac) 20 mg capsule Take by mouth daily. 05/06/2022 magnesium 200 mg tablet Take 400 mg by mouth every morning before breakfast. metroNIDAZOLE (METROGEL) 1 % gel as needed. 05/06/2022 potassium chloride (KLOR-CON SPRINKLE) 10 mEq ER sprinkle capsule daily. 2 04/28/2018 valsartan-hydroCH LOROthiazide (DIOVAN-HCT) 320-25 mg per tablet Take 1 tablet by mouth daily. 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 Borderline-enlarged cardiac silhouette. Surgical clips in the right upper quadrant. Chest otherwise negative. Narrative 11/26/2023 11:38 AM CDT EXAM: ??DX CHEST AP OR PA AND LATERAL 2 VIEWS Procedure Note Kit Reyes M.D. - 11/26/2023 EXAM: DX CHEST AP OR PA AND LATERAL 2 VIEWS IMPRESSION: Since 06/17/2022, no significant interval change. Borderline-enlargedcardiac silhouette. Surgical clips in the right upper quadrant. Chestotherwise negative. us Shahid Monte M.D. 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
--- OUTSIDE RECORDS SUMMARY | 2024-01-22 15:11 | XMS_ITS | Clinical Summary ---
Author Organization [facility] Address [address] [place] [address] Care Team Providers Care Internet Marketing Assistant Name Role Phone Unavailable Primary Care Provider Unavailabl e Source Comments Patient records contain information from all sites at [facility]. For routine questions regarding patient records, call [phone] during business hours, M-F 8:00 AM - 5:00 PM Central Time. Record requests for emergency care only can be directed to [phone] at any time.[facility] Allergies Active Allergy Reactions Criticality Noted Date Comments Animal Dander Cough,Other (see comments) Low 2022 Atorvastatin Other (see comments) High 07/15/2022 House Dust Headache High 05/05/2022 Mold Other (see comments) High 05/05/2022 Pollen Extracts Other (see comments) High 05/05/2022 Medications amLODIPine (NORVASC) 5 mg tablet Take 1 tablet by mouth daily. 10/30/2016 Active potassium chloride (KLOR-CON SPRINKLE) 10 mEq ER sprinkle capsule daily. 2 04/28/2018 Active valsartan-hydro CHLOROthiazide (DIOVAN-HCT) 320-25 mg per tablet Take 1 tablet by mouth daily. 3 04/20/2018 Active cetirizine (ZyrTEC) 10 mg tablet Take 1 tablet by mouth daily. 10/30/2016 Active cholecalciferol , vitamin D3, 25 mcg (1,000 unit) tablet,chewable 50 mcg daily. 05/05/2022 Active clobetasoL 0.025 % cream as needed. 05/05/2022 Acti ve diazePAM (VALIUM) 10 mg tablet as needed. 05/05/2022 Active metroNIDAZOLE (METROGEL) 1 % gel as needed. 05/06/2022 Active FLUoxetine (PROzac) 20 mg capsule Take by mouth daily. 05/06/2022 Active magnesium 200 mg tablet Take 400 mg by mouth every morning before breakfast. Active Active Problems Problem Noted Date Diagnosed [...] Encounters Date Type Department Care Team Description 11/26/2023 3:00 PM CDT Office Visit Department of Cardiovascular Medicine in [place], [place] [address] [place] [phone] Shahid Monte M.D. Other Nonrheumatic Aortic Valve Disorders (Primary Dx); Regurgitation Aortic; Stenosis Aortic Valve Acquired; Aneurysm Aortic Ascending Without Rupture (HCC); Cardiomyopathy Obstructive Hypertrophic (HCC); Dyslipidemia; Apnea Sleep Obstructive; Snoring Primary; Obesity Body Mass Index 30-39.9 Adult 11/26/2023 10:54 AM CDT - 11/26/2023 11:59 PM CDT Hospital Encounter Department of Radiology, [facility], in [place], [place] [address] [place] [phone] Shahid Monte M.D. Other Nonrheumatic Aortic Valve Disorders; Nonrheumatic Aortic Valve Insufficiency; Aneurysm Aortic Ascending Without Rupture (HCC) Discharge Disposition: Home or Self Care 11/26/2023 9:43 AM CDT - 11/26/2023 10:53 AM CDT Hospital Encounter Department of Laboratory Medicine and Pathology, [facility], in [place], [place] [address] [place] [address] Shahid Monte M.D. Other Nonrheumatic Aortic Valve Disorders; Nonrheumatic Aortic Valve Insufficiency; Aneurysm Aortic Ascending Without Rupture (HCC) Discharge Disposition: Home or Self Care 11/11/2023 Clinical Communication Department of Cardiovascular Medicine in [place], [place] [address] [place] [address] Jericho House M.D. Echo Move Up - Nov 25 11/11/2023 Clinical Communication Department of Cardiovascular Medicine in [place], [place] [address] [place] [address] Jericho House M.D. Pre-visit Testing Orders from Last 3 Months Family History Medical [...] Latisha Mother's Sister Chayito Paternal Grandfather Mino Jr. Paternal Grandmother Tess Sister Gwen Social History Tobacco Use Types Packs/Day Years Used Date Smoking Tobacco: Former Cigarettes 0 04/06/1978 - 04/06/1985 Smokeless Tobacco: Never Tobacco Cessation:Counseling Given: Not Answered Comments:Also smoker 1996 to 1999 Alcohol Use Standard Drinks/Week Comments Yes 2 (1 standard drink = 0.6 oz pure alcohol) seldom consume alcohol, when I do it? s a cocktail or glass o [facility] Utilities Answer Date Recorded In the past 12 months has e [employer], [employer], oil, or water [employer] threatened to shut off services in your [...] declined 08/06/2022 How often do you attend [facility] or church services? Never 08/06/2022 Do you belong to any clubs o r organizations such as sikhism groups, unions, fraternal or athletic groups, or [...] and heating? Not hard at all 08/06/2022 [facility] - Occupational Stress Questionnaire Answer Date Recorded [...] your living situation today? I have a [facility] place to live 08/24/2023 Education Answer Date Recorded What is the highest level of school you have completed or the highest degree you have received? Bachelor's degree (e.g., BA, AB, BS) 08/06/2022 Comments No Sex and Gender Information Value Date Recorded Sex Assigned at Female 05/07/2018 4:20 PM OVERHEAD WORKER Legal Sex Female 7:47 PM OVERHEAD WORKER Gender Identity Female 05/07/2018 4:20 PM OVERHEAD WORKER Sexual Orientation Straight 05/07/2018 4: 20 PM OVERHEAD WORKER Last Filed Vital Signs Vital Sign Reading Time Taken Comments Blood Pressure 120/79 11/26/2023 3:18 PM CDT Pulse 71 11/26/2023 3:18 PM CDT Temperature 37 ??C (98.6 ??F) 09/09/2022 4:42 PM CDT Respiratory Rate 14 09/09/2022 4:42 PM CDT Oxygen Saturation 91% 09/09/2022 5:15 PM CDT Inhaled Oxygen Concentration - - Weight 109 kg (239 lb 6.7 oz) 11/26/2023 3:18 PM CDT Height 168.7 cm (5' 6.42) 11/26/2023 3:18 PM CD T Body Mass Index 38.16 11/26/2023 3:18 PM CDT Plan of Treatment Health Maintenance Due Date Last Done Comments CT Colonography 1961 Cologuard 1961 HIV Screening 1960 Hepatitis C Screening 1961 DTaP,Tdap,and Td Vaccines (1 - Tdap) 11/26/2004 11/25/2004 Mammogram 10/20/2015 10/19/2014 (Perf ormed elsewhere) Colonoscopy 09/14/2018 09/14/2013 (Perf ormed elsewhere) Colorectal Cancer Surveillance 09/14/2018 Depression Screening (Annual PHQ-2) 04/06/2023 COVID-19 Vaccine ( season) 2023 01/20/2023, 01/12/2022, 11/10/2021, Additional history exists Influenza Vaccine (#1) 2024 , 01/12/2022, 01/12/2022, Additional history exists Creatinine Level (Kidney Function Test) 11/25/2024 11/26/2023, 06/17/2022, 10/29/2016 Lipid (Cholesterol) Screening 11/25/2024 11/26/2023, 06/17/2022 Office Visit for Blood Pressure Check / Re-check 11/25/2024 11/26/2023 Potassium Level 11/25/2024 11/26/2023, 06/04, 10/29/2016 Sodium Level 11/25/2024 11/26/2023, 06/04, 10/29/2016 Fasting Glucose for Diabetes Screening 11/25/2026 11/26/2023, 06/17/2022 Zoster Vaccines Completed 06/09/2019, 01/14/2019 Cervical Cancer Screening Discontinued 2020, 10/19/2014 (Performed elsewhere) Pneumococcal vaccine (0-64 years) Aged Out No longer eligible based on patient's age to complete this topic Procedures Procedure Name Priority Date/Time Associated Diagnosis Comments DX CHEST AP OR PA AND LATERAL 2 VIEWS RAD - Routine (most inpatients and all outpatients) 11/26/2023 11:01 AM CDT Other Nonrheumatic Aortic Valve Disorders Nonrheumatic Aortic Valve Insufficiency Aneurysm Aortic Ascending Without Rupture (HCC) ECG Routine 11/26/2023 10:39 AM CDT Other Nonrheumatic Aortic Valve Disorders Nonrheumatic Aortic Valve Insufficiency Aneurysm Aortic Ascending Without Rupture (HCC) NT-PRO B-TYPE NATRIURETIC PEPTIDE (BNP), S Routine 11/26/2023 10:03 AM CDT Other Nonrheumatic Aortic Valve Disorders Nonrheumatic Aortic Valve Insufficiency Aneurysm Aortic Ascending Without Rupture (HCC) LIPID PANEL, S Routine 11/26/2023 10:03 AM CDT Other Nonrheumatic Aortic Valve Disorders Nonrheumatic Aortic Valve Insufficiency Aneurysm Aortic Ascending Without Rupture (HCC) CBC WITH DIFFERENTIAL, B Routine 11/26/2023 10:03 AM CDT Other Nonrheumatic Aortic Valve Disorders Nonrheumatic Aortic Valve Insufficiency Aneurysm Aortic Ascending Without Rupture (HCC) PROTHROMBIN TIME (PT), P Routine 11/26/2023 10:03 AM CDT Other Nonrheumatic Aortic Valve Disorders Nonrheumatic Aortic Valve Insufficiency Aneurysm Aortic Ascending Without Rupture (HCC) SODIUM, S/P Routine 11/26/2023 10:03 AM CDT Other Nonrheumatic Aortic Valve Disorders Nonrheumatic Aortic Valve Insufficiency Aneurysm Aortic Ascending Without Rupture (HCC) POTASSIUM, S/P Routine 11/26/2023 10:03 AM CDT Other Nonrheumatic Aortic Valve Disorders Nonrheumatic Aortic Valve Insufficiency Aneurysm Aortic Ascending Without Rupture (HCC) GLUCOSE, FASTING, S/P Routine 11/26/2023 10:03 AM CDT Other Nonrheumatic Aortic Valve Disorders Nonrheumatic Aortic Valve Insufficiency Aneurysm Aortic Ascending Without Rupture (HCC) CREATININE WITH EGFR, S/P Routine 11/26/2023 10:03 AM CDT Other Nonrheumatic Aortic Valve Disorders Nonrheumatic Aortic Valve Insufficiency Aneurysm Aortic Ascending Without Rupture (HCC) ALBUMIN, S/P Routine 11/26/2023 10:03 AM CDT Other Nonrheumatic Aortic Valve Disorders Nonrheumatic Aortic Valve Insufficiency Aneurysm Aortic Ascending Without Rupture (HCC) from Last 3 Months Results * DX Chest AP or PA [...] quadrant. Chestotherwise negative. us Shahid Monte M.D. IMG DIAGNOSTIC IMAGING PROC EDURES Final Result * ECG 12 Lead (11/26/2023 10:39 AM CDT) Ventricular Rate ECG/Min 63 BPM MUSE MO Interval 156 ms MUSE QRSD Interval 88 ms MUSE QT Interval 424 ms MUSE QTC Interval 433 ms MUSE P [place] 29 degrees MUSE R [place] -15 degrees MUSE T Wave [place] 123 degrees MUSE 11/26/2023 10:3 9 AM CDT 11/26/2023 11:02 AM CDT Impressions MUSE - 11/26/2023 11:02 AM CDT Sinus rhythm Left ventricular hypertrophy with secondary ST-T abnormalities Anteroseptal infarct When compared with ECG of 04-Sep-2022 08:31, T wave inversion less evident in Lateral leads Anteroseptal infarct is now evident Reviewed by THOMAS Wells Narrative Procedure Note Gilberto Morris Jr., M.D. - 11/26/2023 IMPRESSION: Sinus rhythm Left ventricular hypertrophy with secondary ST-T abnormalities Anteroseptal infarct When compared with ECG of 04-Sep-2022 08:31, T wave inversion less evident in Lateral leads Anteroseptal infarct is now evident Reviewed by THOMAS Wells us Shahid Monte M.D. ECG ORDERABLES Final Resul t MUSE NA * (ABNORMAL) Lipid Panel (11/26/2023 10:03 AM CDT) Triglycerides 155(H) mg/dL 11/26/2023 11:19 AM CDT DTL Comment: ----REFERENCE VALUE---- Normal: <150 mg/dL Borderline High: 150-199 mg/dL High: 200-499 mg/dL Very High: > or =500 mg/dL Cholesterol, Total 193 mg/dL 2023 11:19 AM CDT DTL Comment: ----REFERENCE VALUE---- Desirable: < 200 mg/dL Borderline High: 200 - 239 mg/dL High: > or = 240 mg/dL Cholesterol, LDL, Calculated 125 mg/dL 11/26/2023 11:19 AM CDT DTL Comment: ----REFERENCE VALUE---- Desirable: <100 mg/dL Above Desirable: 100-129 mg/dL Borderline High: 130-159 mg/dL High: 160-189 mg/dL Very High: >=190 mg/dL ----ADDITIONAL INFORMATION---- LDL cholesterol calculated using the Saenz/NIH equation. Cholesterol, HDL, S 40(L) >=50 mg/dL 11/26/2023 11:19 AM CDT DTL Cholesterol, Non-HDL, Calculated 153 mg/dL 11/26/2023 11:19 AM CDT DTL Comment: ----REFERENCE VALUE---- Desirable: <130 mg/dL Above Desirable: 130-159 mg/dL Borderline High: 160-189 mg/dL High: 190-219 mg/dL Very High: > or =220 mg/dL Fasting (8 HR or more) Yes 11/26/2023 10:03 AM CDT DTL Blood (Blood, Venous) 11/26/2023 10:03 AM CDT 11/26/2023 10:49 AM CDT us Shahid Monte M.D. LAB BLOOD ADD-ON Final Resu lt [facility] [address] [place] [address], [facility] [address] [place] [address] * NT-Pro B-Type Natriuretic Peptide (BNP) (11/26/2023 10:03 AM CDT) NT-Pro BNP 100 <=226 pg/mL 11/26/2023 11:19 AM CDT DTL Comment: NT-proBNP values less than 300 pg/mL have a 99% negative predictive value for excluding acute congestive heart failure. A cutoff of 1200 pg/mL for patients with an eGFR<60 yields a diagnostic sensitivity and specificity of 89% and 72% for acute congestive heart failure. A diagnostic NT-proBNP cutoff of 900 pg/mL has been suggested in adults 50-75 years of age in the absence of renal failure. Blood (Blood, Venous) 11/26/2023 10:03 AM CDT 11/26/2023 10:49 AM CDT us Shahid Monte M.D. LAB BLOOD ADD-ON Final Resu lt Performing Organization Address [facility] Co de Phone Number [facility] [address] [place], [place] [id number] [place] [address] [facility] [address] [place] [address] * Prothrombin Time (PT) (11/26/2023 10:03 AM CDT) Prothrombin Time, P 11.9 9.4 - 12.5 sec 11/26/2023 11:10 AM CDT DTL INR 1.1 0.9 - 1.1 11/26/2023 11:10 AM CDT DTL Comment: ----ADDITIONAL INFORMATION---- Standard intensity warfarin therapeutic range: 2.0 to 3.0 ?? High intensity warfarin therapeutic range: 2.5 to 3.5 Blood (Blood, Venous) 11/26/2023 10:03 AM CDT 11/26/2023 10:31 AM CDT us Shahid Monte M.D. LAB BLOOD ADD-ON Final Resu lt Performing Organization Address [facility] Co de Phone Number [facility] [address] [place] [address], [facility] DTL [facility] [address] [place] [address] * (ABNORMAL) CBC with Differential, Blood (11/26/2023 10:03 AM CDT) Hemoglobin 15.1(H) 11.6 - 15.0 g/dL 11/26/2023 11:35 AM CDT DTL Hematocrit 45.4(H) 35.5 - 44.9 % 11/26/2023 11:35 AM CDT DTL Erythrocytes 5.41(H) 3.92 - 5.13 x10(12)/L 11/26/2023 11:35 AM CDT DTL MCV 83.9 78.2 - 97.9 fL 11/26/2023 11:35 AM CDT DTL RBC Distrib Width 13.8 12.2 - 16.1 % 11/26/2023 11:35 AM CDT DTL Platelet Count 297 157 - 371 x10(9)/L 11/26/2023 11:35 AM CDT DTL Leukocytes 8.0 3.4 - 9.6 x10(9)/L 11/26/2023 11:35 AM CDT DTL Neutrophils 4.76 1.56 - 6.45 x10(9)/L 11/26/2023 11:35 AM CDT DHPM Lymphocytes 2.36 0.95 - 3.07 x10(9)/L 11/26/2023 11:35 AM CDT DTL Monocytes 0.54 0.26 - 0.81 x10(9)/L 11/26/2023 11:35 AM CDT DTL Eosinophils 0.22 0.03 - 0.48 x10(9)/L 11/26/2023 11:35 AM CDT DTL Basophils 0.07 0.01 - 0.08 x10(9)/L 11/26/2023 11:35 AM CDT DTL Blood (Blood, Venous) 11/26/2023 10:03 AM CDT 11/26/2023 10:31 AM CDT us Shahid Monte M.D. LAB BLOOD ADD-ON Final Resu lt [facility] [address] [place] [address], [facility] DTL [facility] [address] [place] [address] [facility] [address] [place] [address] * Sodium (11/26/2023 10:03 AM CDT) [facility] Signature Sodium, S 140 135 - 145 mmol/L 11/26/2023 11:19 AM CDT DTL Blood (Blood, Venous) 11/26/2023 10:03 AM CDT 11/26/2023 10:49 AM CDT us Shahid Monte M.D. LAB BLOOD ADD-ON Final Resu lt [facility] [address] [place] [address] * Potassium (11/26/2023 10:03 AM CDT) Potassium, S 4.2 3.6 - 5.2 mmol/L 11/26/2023 11:19 AM CDT DTL Blood (Blood, Venous) 11/26/2023 10:03 AM CDT 11/26/2023 10:49 AM CDT us Shahid Monte M.D. LAB BLOOD ADD-ON Final Resu lt Performing Organization Address City/[facility]/ZIP Co de Phone Number [facility] [address] [place] [address] * Glucose, Fasting (11/26/2023 10:03 AM CDT) Glucose, P 98 70 - 100 mg/dL 11/26/2023 11:06 AM CDT DTL Last Intake 15 hr 11/26/2023 10:45 AM CDT DTL Blood (Blood, Venous) 11/26/2023 10:03 AM CDT 11/26/2023 10:45 AM CDT us Shahid Monte M.D. LAB BLOOD NON ADD-ON Final Result [facility] [address] [facility] [address] [place] [address] * Creatinine with Estimated GFR (11/26/2023 10:03 AM CDT) Creatinine 0.99 0.59 - 1.04 mg/dL 11/26/2023 11:19 AM CDT DTL Estimated GFR (eGFR) 65 >=60 mL/min/BSA 11/26/2023 11:19 AM CDT DTL Comment: Estimated GFR calculated using the 2020 CKD_EPI creatinine equation. Blood (Blood, Venous) 11/26/2023 10:03 AM CDT 11/26/2023 10:49 AM CDT us Shahid Monte M.D. LAB BLOOD ADD-ON Final Resu lt [facility] [address] [place] [address], [facility] [address] [place] [address] * Albumin (11/26/2023 10:03 AM CDT) Albumin, S 4.4 3.5 - 5.0 g/dL 11/26/2023 11:19 AM CDT DTL Blood (Blood, Venous) 11/26/2023 10:03 AM CDT 11/26/2023 10:49 AM CDT us Shahid Monte M.D. LAB BLOOD ADD-ON Final Resu lt [facility] [address] [place] [address], [facility] [address] [place] [address] from Last 3 Months Insurance [facility] Advance Directives For more information, please contact: [phone] Documents on File Type Date Recorded Patient Demographic Analyst Expl anation Advance Directives 09/10/2022 6:47 AM [...]
--- OUTSIDE RECORDS SUMMARY | 2024-01-22 15:11 | XMS_ITS | Referral Summary ---
Author Organization [facility] Address [address] [place] [address] Care Team Providers Care Infantry Unit Leader Name Role Phone Unavailable Primary Care Provider Unavailabl e Source Comments Patient records contain information from all sites at [facility]. For routine questions regarding patient records, call [phone] during business hours, M-F 8:00 AM - 5:00 PM Central Time. Record requests for emergency care only can be directed to [phone] at any time.[facility] Encounters Date Type Department Care Team Description 11/26/2023 10:54 AM CDT - 11/26/2023 11:59 PM CDT Hospital Encounter Department of Radiology, [facility] in [place], [place] [address] [place] [address] Shahid Monte M.D. Other Nonrheumatic Aortic Valve Disorders; Nonrheumatic Aortic Valve Insufficiency; Aneurysm Aortic Ascending Without Rupture (HCC) Discharge Disposition: Home or Self Care 11/26/2023 9:43 AM CDT - 11/26/2023 10:53 AM CDT Hospital Encounter Department of Laboratory Medicine and Pathology, [facility] in [place], [place] [address] [place] [address] Shahid Monte M.D. Other Nonrheumatic Aortic Valve Disorders; Nonrheumatic Aortic Valve Insufficiency; Aneurysm Aortic Ascending Without Rupture (HCC) Discharge Disposition: Home or Self Care 11/26/2023 3:00 PM CDT Office Visit Department of Cardiovascular Medicine in [place], [place] [address] [place] [address] Shahid Monte M.D. Other Nonrheumatic Aortic Valve Disorders (Primary Dx); Regurgitation Aortic; Stenosis Aortic Valve Acquired; Aneurysm Aortic Ascending Without Rupture (HCC); Cardiomyopathy Obstructive Hypertrophic (HCC); Dyslipidemia; Apnea Sleep Obstructive; Snoring Primary; Obesity Body Mass Index 30-39.9 Adult 11/11/2023 Clinical Communication Department of Cardiovascular Medicine in [place], [place] [address] [place] [address] CardiologJericho aceves M.D. Echo Move - Nov 25 11/11/2023 Clinical Communication Department of Cardiovascular Medicine in [place], [place] [address] [place] [address] CardiologJericho aceves M.D. Pre-visit Testing Orders from Last 3 Months Allergies Active Allergy [...] it? s a cocktail or glass o [facility] [employer] Answer Date Recorded In the past 12 months has e [email or web address] gas, oil, or water [employer] threatened to shut off services in your [...] How often do you attend chur or restorationist services? Never 08/06/2022 Do you belong to any clubs o r organizations such as tenriism groups, unions, fraternal or athletic groups, or [...] and heating? Not hard at all 08/06/2022 [facility] of Occupat ional Health - Occupational Stress [...] your living situation today? I have a [facility] place to live 08/24/2023 Education Answer Date Recorded What is the highest level of school you have completed or the highest degree you have received? Bachelor's degree (e.g., BA, AB, BS) 08/06/2022 Comments No Sex and Gender Information Value Date Recorded Sex Assigned at Female 05/07/2018 4:20 PM ELECTRICAL AND INSTRUMENTATION MANAGER Legal Sex Female 7:47 PM ELECTRICAL AND INSTRUMENTATION MANAGER Gender Identity Female 05/07/2018 4:20 PM ELECTRICAL AND INSTRUMENTATION MANAGER Sexual Orientation Straight 05/07/2018 4: 20 PM ELECTRICAL AND INSTRUMENTATION MANAGER Last Filed Vital Signs Vital Sign Reading [...] 11/26/2023 3:18 PM CDT Plan of Treatment Not on file Procedures Procedure Name Priority Date/Time Associated Diagnosis [...] Chestotherwise negative. us Shahid Monte M.D. [facility] DIAGNOSTIC IMAGING PROC EDURES Final Result * ECG 12 Lead (11/26/2023 10:39 AM CDT) Ventricular Rate ECG/Min 63 BPM MUSE [place] Interval 156 ms MUSE QRSD Interval 88 ms MUSE QT Interval 424 ms MUSE QTC Interval 433 ms MUSE P [place] 29 degrees MUSE R [place] -15 degrees MUSE T Wave [place] 123 degrees MUSE 11/26/2023 10:3 9 AM [...] or more) Yes 11/26/2023 10:03 AM CDT DT Blood (Blood, Venous) 11/26/2023 10:03 AM CDT 11/26/2023 10:49 AM CDT us Sahhid Monte M.D. LAB BLOOD ADD-ON Final Resu lt Performing Organization Address [facility] Co de Phone Number [address] [place] [address] * NT-Pro B-Type Natriuretic Peptide (BNP) (11/26/2023 [...] ADD-ON Final Resu lt Performing Organization Address City/[facility]/ZIP Co de Phone Number [facility] [address] [facility] [address] [place] [address] * Prothrombin Time (PT) (11/26/2023 10:03 AM CDT) [facility] Prothrombin Time, P 11.9 9.4 - 12.5 [...] M.D. LAB BLOOD ADD-ON Final Resu lt [facility] [address] [place], [place] [address] 200 [place] [address] * (ABNORMAL) CBC with Differential, Blood (11/26/2023 10:03 AM CDT) [facility] Hemoglobin 15.1(H) 11.6 - 15.0 g/dL 11/26/2023 [...] M.D. LAB BLOOD ADD-ON Final Resu lt [facility] [address] [place] [id number], [facility] 200 [place] [address] [facility] 200 [place] [address] * Sodium (11/26/2023 10:03 AM CDT) Sodium, S 140 135 - 145 mmol/L 11/26/2023 11:19 AM CDT DTL Blood (Blood, Venous) 11/26/2023 10:03 AM CDT 11/26/2023 10:49 AM CDT us Shahid Monte M.D. LAB BLOOD ADD-ON Final Resu lt [facility] [address] [place] [address], [facility] DTL [facility] 200 [place] [address] * Potassium (11/26/2023 10:03 AM CDT) Potassium, S 4.2 3.6 - 5.2 mmol/L 11/26/2023 11:19 AM CDT DTL Blood (Blood, Venous) 11/26/2023 10:03 AM CDT 11/26/2023 10:49 AM CDT us Shahid Monte M.D. LAB BLOOD ADD-ON Final Resu lt Performing Organization Address City/[facility] Co de Phone Number [facility] [address] [place], [place] [id number] [place] [address] [facility] 200 [place] [address] * Glucose, Fasting (11/26/2023 10:03 AM CDT) Glucose, P 98 70 - 100 mg/dL 11/26/2023 11:06 AM CDT DTL Last Intake 15 hr 11/26/2023 10:45 AM CDT DTL Blood (Blood, Venous) 11/26/2023 10:03 AM CDT 11/26/2023 10:45 AM CDT us Shahid Monte M.D. LAB BLOOD NON ADD-ON Final Result Performing Organization Address [facility] Co de Phone Number [facility] 200 [place] [address], [facility] [address] [address] * Creatinine with Estimated GFR (11/26/2023 10:03 AM CDT) Creatinine 0.99 0.59 - 1.04 mg/dL 11/26/2023 11:19 AM CDT DTL Estimated GFR (eGFR) 65 >=60 mL/min/BSA 11/26/2023 11:19 AM CDT DTL Comment: Estimated GFR calculated using the 2020 CKD_EPI creatinine equation. Blood (Blood, Venous) 11/26/2023 10:03 AM CDT 11/26/2023 10:49 AM CDT us Shahid Monte M.D. LAB BLOOD ADD-ON Final Resu lt [facility] 200 [place] [address], [facility] DTL [facility] 200 [place] [address] * Albumin (11/26/2023 10:03 AM CDT) Albumin, S 4.4 3.5 - 5.0 g/dL 11/26/2023 11:19 AM CDT DTL Blood (Blood, Venous) 11/26/2023 10:03 AM CDT 11/26/2023 10:49 AM CDT us Shahid Monte M.D. LAB BLOOD ADD-ON Final Resu lt Performing Organization Address City/[facility]/ZIP Co de Phone Number [facility] 200 [place] [address], [place] [facility] 200 [place] [address] from Last 3 Months Insurance [facility] Advance Directives For more information, please contact: [phone] Documents on File Type Date Recorded Patient Playground Director Expl anation Advance Directives 09/10/2022 6:47 AM [...]
--- OUTSIDE RECORDS SUMMARY | 2024-01-22 15:11 | XMS_ITS ---
Author Organization [facility] Address [address] [place] [address] Care Team Providers Care Park Interpreter Name Role Phone Unavailable Unavailable Unavailable Surgery Details Not on file Complications Check Surgery Details section. Procedure Estimated Blood Loss Check Surgery Details section. Procedure Findings Check Surgery Details section. Procedure Specimens Taken Check Surgery Details section.
--- OUTSIDE RECORDS SUMMARY | 2024-01-22 15:12 | XMS_ITS | Encounter Summary ---
Author Organization [facility] Address [address] [place] [address] Care Team Providers Care Ediscovery Project Manager Name Role Phone Unavailable Primary Care Provider Unavailabl e Encounter Details Date Type Department Care Team (Latest Contact Info) Description 11/26/2023 9:43 AM CDT - 11/26/2023 10:53 AM CDT Hospital Encounter Department of Laboratory Medicine and Pathology, [facility] in [place], [place] [address] [place] [address] Shahid Monte M.D. [address] [place] [address] Other Nonrheumatic Aortic Valve Disorders; Nonrheumatic Aortic [...] it? s a cocktail or glass o [facility] Utilities Answer Date Recorded In the past 12 months has th e electric, gas, oil, or water company threatened to shut off services in your [...] How often do you attend chur or hinduism services? Never 08/06/2022 Do you belong to any clubs o r organizations such as catholic groups, unions, fraternal or athletic groups, or [...] and heating? Not hard at all 08/06/2022 [facility] [place] of Occupat ional Health - Occupational Stress [...] your living situation today? I have a [facility] place to live 08/24/2023 Education Answer Date Recorded What is the highest level of school you have completed or the highest degree you have received? Bachelor's degree (e.g., BA, AB, BS) 08/06/2022 Comments No Sex and Gender Information Value Date Recorded Sex Assigned at Female 05/07/2018 4:20 PM LAST MODEL DEPARTMENT SUPERVISOR Legal Sex Female 7:47 PM LAST MODEL DEPARTMENT SUPERVISOR Gender Identity Female 05/07/2018 4:20 PM LAST MODEL DEPARTMENT SUPERVISOR Sexual Orientation Straight 05/07/2018 4: 20 PM LAST MODEL DEPARTMENT SUPERVISOR documented as of this encounter Medications at [...] Procedure Name Priority Date/Time Associated Diagnosis Comments LIPID PANEL, S Routine 11/26/2023 10:03 AM [...] (HCC) documented in this encounter Results * NT-Pro B-Type Natriuretic Peptide (BNP) (11/26/2023 [...] M.D. LAB BLOOD ADD-ON Final Resu lt [facility] [address] [place] [address], [place] DTL [facility] [address] [place] [address] * (ABNORMAL) Lipid Panel (11/26/2023 10:03 AM [...] M.D. LAB BLOOD ADD-ON Final Resu lt [facility] [address] [place] [address], [facility] [[email or web address]] DTL [facility] [address] [place] [address] * (ABNORMAL) CBC with Differential, Blood (11/26/2023 [...] M.D. LAB BLOOD ADD-ON Final Resu lt [facility] [address] [place] [address], [facility] [[email or web address]] [facility] [address] [place] [address] [facility] [address] [place] [address] * Prothrombin Time (PT) (11/26/2023 10:03 AM [...] ADD-ON Final Resu lt Performing Organization Address City/[facility]/ZIP Co de Phone Number [facility] [address] [place], [place] [address] 200 [place] [address] * Sodium (11/26/2023 10:03 AM CDT) Sodium, S 140 135 - 145 mmol/L 11/26/2023 11:19 AM CDT DTL Blood (Blood, Venous) 11/26/2023 10:03 AM CDT 11/26/2023 10:49 AM CDT us Shahid Monte M.D. LAB BLOOD ADD-ON Final Resu lt [facility] [address] [place], [place] [address] [place] [address] 200 [place] [address] * Potassium (11/26/2023 10:03 AM CDT) Potassium, S 4.2 3.6 - 5.2 mmol/L 11/26/2023 11:19 AM CDT DTL Blood (Blood, Venous) 11/26/2023 10:03 AM CDT 11/26/2023 10:49 AM CDT us Shahid Monte M.D. LAB BLOOD ADD-ON Final Resu lt Performing Organization Address [facility] Co de Phone Number [facility] [address] [place] [address], [facility] [address] [place] [address] * Glucose, Fasting (11/26/2023 10:03 AM CDT) Glucose, P 98 70 - 100 mg/dL 11/26/2023 11:06 AM CDT DTL Last Intake 15 hr 11/26/2023 10:45 AM CDT DTL Blood (Blood, Venous) 11/26/2023 10:03 AM CDT 11/26/2023 10:45 AM CDT us Shahid Monte M.D. LAB BLOOD NON ADD-ON Final Result Performing Organization Address [facility] de Phone Number [facility] [address] [place] [address], [facility] [address] [place] [address] * Creatinine with Estimated GFR (11/26/2023 10:03 AM CDT) Creatinine 0.99 0.59 - 1.04 mg/dL 11/26/2023 11:19 AM CDT DTL Estimated GFR (eGFR) 65 >=60 mL/min/BSA 11/26/2023 11:19 AM CDT DTL Comment: Estimated GFR calculated using the 2020 CKD_EPI creatinine equation. Blood (Blood, Venous) 11/26/2023 10:03 AM CDT 11/26/2023 10:49 AM CDT us Shahid Monte M.D. LAB BLOOD ADD-ON Final Resu lt [facility] [address] [place] [address], [facility] [address] [place] [address] * Albumin (11/26/2023 10:03 AM CDT) Albumin, S 4.4 3.5 - 5.0 g/dL 11/26/2023 11:19 AM CDT DTL Blood (Blood, Venous) 11/26/2023 10:03 AM CDT 11/26/2023 10:49 AM CDT us Shahid Monte M.D. 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
--- OUTSIDE RECORDS SUMMARY | 2024-01-22 15:12 | XMS_ITS | Encounter Summary ---
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 [address] [place] [address] Phone: tel: fax: [facility] Referral ID Status Reason Start Date Expiration Date Visits Re quested Visits Authorized [id number] Closed 11/11/2023 11/10/2024 1 1 Reason for Visit * Reason Onset Date Comments Pre-visit Testing Orders 11/11/2023 Encounter Details Date Type Department Care Team (Latest Contact Info) Description 11/11/2023 Clinical Communication Department of Cardiovascular Medicine in [place], [place] [address] [place] [address] Nozzle OperatorJericho M.D. Pre-visit Testing Orders Social History Tobacco Use Types Packs/Day Years Used Date Smoking Tobacco: Former Cigarettes 0 04/06/1977 - 04/06/1985 Smokeless Tobacco: Never Comments:Also smoker 1996 to 1999 Alcohol Use Standard Drinks/Week Comments Yes 2 (1 standard drink = 0.6 oz pure alcohol) seldom consume alcohol, when I do it? s a cocktail or glass o [facility] [employer] Answer Date Recorded In the past 12 months has [employer], gas, oil, or water [employer] threatened to shut off services in your [...] How often do you attend chur or zoroastrian services? Never 08/06/2022 Do you belong to any clubs o r organizations such as presybeterian groups, unions, fraternal or athletic groups, or [...] and heating? Not hard at all 08/06/2022 [facility] of Occupat ional Health - Occupational Stress [...] Sex Assigned at Female 05/07/2018 4:20 PM COMMERCIAL ENERGY AUDITOR Legal Sex Female 7:47 PM COMMERCIAL ENERGY AUDITOR Gender Identity Female 05/07/2018 4:20 PM COMMERCIAL ENERGY AUDITOR Sexual Orientation Straight 05/07/2018 4: 20 PM COMMERCIAL ENERGY AUDITOR documented as of this encounter Plan of Treatment Not on file documented as of this encounter Results * DX Chest AP [...] quadrant. Chestotherwise negative. us Shahid Monte M.D. [facility] DIAGNOSTIC IMAGING PROC EDURES Final Result * ECG 12 Lead (11/26/2023 10:39 AM CDT) Ventricular Rate ECG/Min 63 BPM MUSE [place] Interval 156 ms MUSE QRSD Interval 88 ms MUSE QT Interval 424 ms MUSE QTC Interval 433 ms MUSE P [place] 29 degrees MUSE R [place] -15 degrees MUSE T Wave [place] 123 degrees MUSE 11/26/2023 10:3 9 AM [...] ORDERABLES Final Resul t MUSE NA * NT-Pro B-Type Natriuretic Peptide (BNP) (11/26/2023 10:03 AM CDT) Pathologist [facility] NT-Pro BNP 100 <=226 pg/mL 11/26/2023 11:19 [...] AM CDT 11/26/2023 10:49 AM CDT us RJoyce Willie Monte M.D. LAB BLOOD ADD-ON Final Resu lt [facility] [address] [place] [address], [facility] D[facility] [address] [place] [address] * (ABNORMAL) Lipid Panel (11/26/2023 10:03 AM [...] M.D. LAB BLOOD ADD-ON Final Resu lt [facility] [address] [place] [address], [facility] DTL [facility] [address] [place] [address] * (ABNORMAL) CBC with Differential, Blood (11/26/2023 [...] M.D. LAB BLOOD ADD-ON Final Resu lt [facility] [address] [place] [address], [facility] [address] [place] [address] [facility] 200 [place] [address] * Prothrombin Time (PT) (11/26/2023 10:03 AM [...] M.D. LAB BLOOD ADD-ON Final Resu lt [facility] [address] [place] [address], [facility] [address] [place] [address] * Sodium (11/26/2023 10:03 AM CDT) Sodium, S 140 135 - 145 mmol/L 11/26/2023 11:19 AM CDT DTL Blood (Blood, Venous) 11/26/2023 10:03 AM CDT 11/26/2023 10:49 AM CDT us R. Willie Monte M.D. LAB BLOOD ADD-ON Final Resu lt Performing Organization Address City/[facility]/ZIP Co de Phone Number [facility] [address] [place] [address], [facility] 200 [place] [address] * Potassium (11/26/2023 10:03 AM CDT) Potassium, S 4.2 3.6 - 5.2 mmol/L 11/26/2023 11:19 AM CDT DTL Blood (Blood, Venous) 11/26/2023 10:03 AM CDT 11/26/2023 10:49 AM CDT us Shahid Monte M.D. LAB BLOOD ADD-ON Final Resu lt Performing Organization Address City/[facility] Co de Phone Number [facility] [address] [place] [address], [facility] [address] [place] [address] * Glucose, Fasting (11/26/2023 10:03 AM CDT) Glucose, P 98 70 - 100 mg/dL 11/26/2023 11:06 AM CDT DTL Last Intake 15 hr 11/26/2023 10:45 AM CDT DTL Blood (Blood, Venous) 11/26/2023 10:03 AM CDT 11/26/2023 10:45 AM CDT us Shahid Monte M.D. LAB BLOOD NON ADD-ON Final Result Performing Organization Address City/[facility]/ZIP Co de Phone Number [facility] [address] [place] [address], [facility] [address] [place] [address] * Creatinine with Estimated GFR (11/26/2023 10:03 [...] ADD-ON Final Resu lt Performing Organization Address City/[facility]/ZIP Co de Phone Number [facility] [address] [place] [address], [facility] [address] [place] [address] * Albumin (11/26/2023 10:03 AM CDT) Albumin, S 4.4 3.5 - 5.0 g/dL 11/26/2023 11:19 AM CDT DTL Blood (Blood, Venous) 11/26/2023 10:03 AM CDT 11/26/2023 10:49 AM CDT us Shahid Monte M.D. 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
--- OUTSIDE RECORDS SUMMARY | 2024-01-22 15:12 | XMS_ITS | Encounter Summary ---
Author Organization [facility] Address [address] [place] [address] Care Team Providers Care Combination Operator Name Role Phone Unavailable Primary Care Provider Unavailabl e Reason for Referral * Cardiovascular-Diagnostic (Routine) - Authorized Specialty Diagnoses / Procedures Referred By Anderson ramesh Referred To Contact Diagnoses Other Nonrheumatic Aortic Valve Disorders Aneurysm Aortic Ascending Without Rupture (HCC) Cardiomyopathy Obstructive Hypertrophic (HCC) Dyslipidemia Apnea Sleep Obstructive Snoring Primary Obesity Body Mass Index 30-39.9 Adult Regurgitation Aortic Procedures Echo Transthoracic (TTE) Shahid Monte M.D. [address] [place] [address] Phone: tel: fax: [facility] Referral ID Status Reason Start Date Expiration Date V isits Requested Visits Authorized [id number] Authorized 11/26/2023 11/25/2024 1 1 Reason for Visit * Appointment Request (Routine) - Closed Specialty Diagnoses / Procedures Referred By Anderson t Referred To Contact Cardiovascular Disease Referral ID Status Reason Start Date Expiration Date Visits Re quested Visits Authorized [id number] Closed 11/11/2023 11/10/2024 1 1 Encounter Details Date Type Department Care Team (Latest Contact Info) Description 11/26/2023 3:00 PM CDT Office Visit Department of Cardiovascular Medicine in [place], [place] [address] [place] [address] Shahid Monte M.D. [address] [place] [address] Other Nonrheumatic Aortic Valve Disorders (Primary Dx); Regurgitation Aortic; Stenosis Aortic Valve Acquired; Aneurysm Aortic Ascending Without Rupture (HCC); Cardiomyopathy Obstructive Hypertrophic (HCC); Dyslipidemia; Apnea Sleep Obstructive; Snoring Primary; Obesity Body Mass Index 30-39.9 Adult Social History Tobacco Use Types Packs/Day Years Used Date Smoking Tobacco: Former Cigarettes 0 04/06/1978 - 04/06/1985 Smokeless Tobacco: Never Tobacco Cessation:Counseling Given: Not Answered Comments:Also smoker 1996 to 1999 Alcohol Use Standard Drinks/Week Comments Yes 2 (1 standard drink = 0.6 oz pure alcohol) seldom consume alcohol, when I do it? s a cocktail or glass o [facility] [employer] Answer Date Recorded In the past 12 months has [facility] [employer], gas, oil, or water [employer] threatened to shut off services in your [...] declined 08/06/2022 How often do you attend [facility] or congregation services? Never 08/06/2022 Do you belong to any clubs o r organizations such as congregational groups, unions, fraternal or athletic groups, or [...] and heating? Not hard at all 08/06/2022 [facility] Occupat ional Health - Occupational [...] your living situation today? I have a [place] place to live 08/24/2023 Education Answer Date Recorded What is the highest level of school you have completed or the highest degree you have received? Bachelor's degree (e.g., BA, AB, BS) 08/06/2022 Comments No Sex and Gender Information Value Date Recorded Sex Assigned at Female 05/07/2018 4:20 PM TURRET LATHE TENDER Legal Sex Female 7:47 PM TURRET LATHE TENDER Gender Identity Female 05/07/2018 4:20 PM TURRET LATHE TENDER Sexual Orientation Straight 05/07/2018 4: 20 PM TURRET LATHE TENDER documented as of this encounter Last Filed Vital Signs Vital Sign Reading Time Taken Comments Blood Pressure 120/79 11/26/2023 3:18 PM CDT Pulse 71 11/26/2023 3:18 PM CDT Temperature - - Respiratory Rate - - Oxygen Saturation - - Inhaled Oxygen Concentration - - Weight 109 kg (239 lb 6.7 oz) 11/26/2023 3:18 PM CDT Height 168.7 cm (5' 6.42) 11/26/2023 3:18 PM CD T Body Mass Index 38.16 11/26/2023 3:18 PM CDT documented in this encounter Consult Notes * Shahid Monte M.D. - 11/26/2023 3:00 PM CDT SUBJECTIVE Referring Provider: No ref. provider found CHIEF COMPLAINT / REASON FOR CONSULT Cardiovascular follow-up HISTORY OF PRESENT ILLNESS Chelsea Mcintosh is a 62 y.o. female who presents to [facility] for cardiovascular follow-up of aortic valve disease, aortic regurgitation, thoracic aortic aneurysm and possible hypertrophic cardiomyopathy at the request of No ref. provider found. I saw her in 09/23/2022. She is doing well since that time. She has no active symptoms. She is not complaining of any shortness of breath now, chest pain, chest tightness or any other functional limitation. 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 Cardiac History: Previous cardiac history includes: Patient Active Problem List Diagnosis Aneurysm Aortic Ascending Without Rupture (HCC) Cancer Breast Ductal In Situ Left Hyperplasia Endometrial With Atypia Claustrophobia Dyslipidemia Ectasia Thoracic Aortic (HCC) Eczema Gallstone Without Obstruction Hypertension Nonrheumatic Aortic Valve Insufficiency Rosacea Thyrotoxicosis Unspecified Without Thyrotoxic Crisis Or Storm Past Medical History: Diagnosis Date Cancer Breast Personal History 12/19/2017 Eczema 1962 Gallbladder Disorder 09/04/2013 Hyperlipidemia 2020 Hypertension NOS 04/06/1981 Other Specified Health Status 2017 Seeing [facility] Polyp Colon 01/20/13 Sleep Apnea 12/14/13 SOCIAL HISTORY Social History Tobacco Use Smoking status: Former Current packs/day: 0.00 Types: Cigarettes Start date: 04/06/1978 Quit date: 04/06/1985 Years since quittin.6 Smokeless tobacco: Never Tobacco comments: Also smoker 1996 to 1999 Substance Use Topics Alcohol use: Yes Alcohol/week: 2.0 standard drinks of alcohol Types: 1 Glasses of wine, 1 Standard drinks or equivalent per week Comment: seldom consume alcohol, when I do it???s a cocktail or glass o Family History Problem Relation Name Age of Onset Breast cancer Mother Latisha Age 60 Hypertension Mother Latisha Hyperlipidemia Mother Latisha Thyroid disease Mother Latisha Arthritis Mother Latisha Kidney disease Mother Latisha Obesity Mother Latisha Other cancer Father Mino MG Multiple myeloma Hypertension Father Mino MG Parkinson disease Father Mino MG With lewy bodies - [phone] Dementia Father Mino MG Lewy body Anxiety disorder Father Mino MG Kidney disease Maternal Grandfather Gibson Lung cancer Paternal Grandfather Mino Espino Breast cancer Paternal Grandmother Tess Age 45 Stroke Paternal Grandmother Tess Breast cancer Mother's Sister Chayito Age 45 Breast cancer Father's Sister Steffi Age 74 Endometrial cancer Daughter Yvonne 2021 Clotting disorder Daughter Yvonne Post-surgery Obesity Daughter Yvonne Hypertension Sister Gwen Thyroid disease Sister Gwen Anxiety disorder Father's Sister Tonja Current Outpatient Medications: amLODIPine (NORVASC) 5 mg tablet, Take 1 tablet by mouth daily., Disp: , Rfl: cetirizine (ZyrTEC) 10 mg tablet, Take 1 tablet by mouth daily., Disp: , Rfl: cholecalciferol, vitamin D3, 25 mcg (1,000 unit) tablet,chewable, 50 mcg daily., Disp: , Rfl: clobetasoL 0.025 % cream, as needed., Disp: , Rfl: diazePAM (VALIUM) 10 mg tablet, as needed., Disp: , Rfl: FLUoxetine (PROzac) 20 mg capsule, Take by mouth daily., Disp: , Rfl: magnesium 200 mg tablet, Take 400 mg by mouth every morning before breakfast., Disp: , Rfl: metroNIDAZOLE (METROGEL) 1 % gel, as needed., Disp: , Rfl: potassium chloride (KLOR-CON SPRINKLE) 10 mEq ER sprinkle capsule, daily., Disp: , Rfl: 2 valsartan-hydroCHLOROthiazide (DIOVAN-HCT) 320-25 mg per tablet, Take 1 tablet by mouth daily., Disp: , Rfl: 3 Allergies Allergen Reactions Atorvastatin Other (see comments) House Dust Headache Mold Other (see comments) Pollen Extracts Other (see comments) Animal Dander Cough and Other (see comments) I have reviewed the chart including most recent evaluations and noted the findings. REVIEW OF SYSTEMS Pertinent items are noted in HPI; all other review of systems was negative. OBJECTIVE BP 120/79 (BP Location: Right arm, Patient Position: Sitting, Cuff Size: Large) Pulse 71 Ht 168.7 cm Wt 109 kg BMI 38.16 kg/m?? PHYSICAL EXAMINATION General Appearance: Alert, cooperative, no distress, appears stated age. Eyes: Normal without any redness or drainage. Neck: Supple, symmetrical. Trachea midline. No adenopathy. Carotids 4/4, no bruits; JVP 8 cm, normal waveform Lungs: Clear to auscultation bilaterally, respirations unlabored. Chest Wall: No tenderness or deformity. Heart: Regular rate and rhythm, S1 normal and S2 normal, no rub or gallop, grade 2/6 early peaking systolic ejection murmur, grade 2/6 diastolic decrescendo murmur. Abdomen: Soft, nontender. Bowel sounds active all four quadrants. No masses. No organomegaly. Extremities: Extremities normal, atraumatic, no cyanosis or edema. Vessels: No edema appreciated. Peripheral pulses are symmetrical and of normal contour. Skin: Skin color, texture, turgor normal. No rashes or lesions. Psychiatric: Normal mood and cognitive reasoning appear normal. Neurologic: Normal strength and sensation. No obvious weakness. DIAGNOSTICS I have reviewed the patient's current laboratory, imaging, and other diagnostic studies. Pertinent imaging studies have been reviewed and are notable for: ECG: ECG 12 Lead Result Date: 11/26/2023 Sinus rhythm Left ventricular hypertrophy with secondary ST-T abnormalities Anteroseptal infarct When compared with ECG of 04-Sep-2022 08:31, T wave inversion less evident in Lateral leads Anteroseptal infarct is now evident Reviewed by THOMAS Wells Chest x-ray: DX Chest AP or PA and Lateral 2 Views Result Date: 11/26/2023 Impression: Since 06/17/2022, no significant interval change. Borderline-enlarged cardiac silhouette. Surgical clips in the right upper quadrant. Chest otherwise negative. Echocardiogram: Not ordered Labs: Appointment on 11/26/2023 Component Date Value Ventricular Rate ECG/Min 11/26/2023 63 OK Interval 11/26/2023 156 QRSD Interval 11/26/2023 88 QT Interval 11/26/2023 424 QTC Interval 11/26/2023 433 P [place] 11/26/2023 29 R [place] 11/26/2023 -15 T Wave [place] 11/26/2023 123 Hospital Outpatient Visit on 11/26/2023 Component Date Value Albumin, S 11/26/2023 4.4 Creatinine 11/26/2023 0.99 Estimated GFR (eGFR) 11/26/2023 65 Glucose, P 11/26/2023 98 Last Intake 11/26/2023 15 Potassium, S 11/26/2023 4.2 Sodium, S 11/26/2023 140 Prothrombin Time, P 11/26/2023 11.9 INR 11/26/2023 1.1 Hemoglobin 11/26/2023 15.1 (H) Hematocrit 11/26/2023 45.4 (H) Erythrocytes 11/26/2023 5.41 (H) MCV 11/26/2023 83.9 RBC Distrib Width 11/26/2023 13.8 Platelet Count 11/26/2023 297 Leukocytes 11/26/2023 8.0 Neutrophils 11/26/2023 4.76 Lymphocytes 11/26/2023 2.36 Monocytes 11/26/2023 0.54 Eosinophils 11/26/2023 0.22 Basophils 11/26/2023 0.07 Triglycerides 11/26/2023 155 (H) Cholesterol, Total 11/26/2023 193 Cholesterol, LDL, Calcul* 11/26/2023 125 Cholesterol, HDL, S 11/26/2023 40 (L) Cholesterol, Non-HDL, Ca* 11/26/2023 153 Fasting (8 HR or more) 11/26/2023 Yes NT-Pro BNP 11/26/2023 100 ASSESSMENT / PLAN #1 Regurgitation Aortic #2 Stenosis Aortic Valve Acquired #3 Other Nonrheumatic Aortic Valve Disorders #4 Aneurysm Aortic Ascending Without Rupture (HCC) #5 Cardiomyopathy Obstructive Hypertrophic (HCC) #6 Dyslipidemia #7 Apnea Sleep Obstructive #8 Snoring Primary #9 Obesity Body Mass Index 30-39.9 Adult It is a pleasure to see the patient today. She needs annual surveillance of her aortic valve disease, her hypertrophic cardiomyopathy and her thoracic aortic aneurysm. No testing was done prior to today's visit. I will schedule the testing and see her back in the late fall. We will obtain an echocardiogram, basic blood work and a chest x-ray. Clinically, she seems quite stable and is doing well. I do not anticipate that we need to recommend surgery at this time. Nonetheless I will see her back and review things. I have encouraged her to speak with her primary care provider about treatment for her obesity. I think she would benefit from GLP one therapy as a adjunct for weight loss. Total Time: 70 minutes Time Counselin minutes documented in this encounter Plan of Treatment Scheduled Orders Name Type Priority Associated Diagnoses Orde r Schedule Comprehensive Metabolic Panel Lab Routine Other Nonrheumatic Aortic Valve Disorders Aneurysm Aortic Ascending Without Rupture (HCC) Cardiomyopathy Obstructive Hypertrophic (HCC) Dyslipidemia Apnea Sleep Obstructive Snoring Primary Obesity Body Mass Index 30-39.9 Adult Regurgitation Aortic Expected: 02/26/2024, Expires: 02/25/2025 Lipid Panel Lab Routine Other Nonrheumatic Aortic Valve Disorders Aneurysm Aortic Ascending Without Rupture (HCC) Cardiomyopathy Obstructive Hypertrophic (HCC) Dyslipidemia Apnea Sleep Obstructive Snoring Primary Obesity Body Mass Index 30-39.9 Adult Regurgitation Aortic Expected: 02/26/2024, Expires: 02/25/2025 Echo Transthoracic (TTE) Echocardiography Routine Other Nonrheumatic Aortic Valve Disorders Aneurysm Aortic Ascending Without Rupture (HCC) Cardiomyopathy Obstructive Hypertrophic (HCC) Dyslipidemia Apnea Sleep Obstructive Snoring Primary Obesity Body Mass Index 30-39.9 Adult Regurgitation Aortic Expected: 02/26/2024, Expires: 02/25/2025 documented as of this encounter Visit Diagnoses Diagnosis Other Nonrheumatic Aortic Valve Disorders- Primary Regurgitation Aortic Stenosis Aortic Valve Acquired Aneurysm Aortic Ascending Without Rupture (HCC) Cardiomyopathy Obstructive Hypertrophic (HCC) Dyslipidemia Apnea Sleep Obstructive Snoring Primary Obesity Body Mass Index 30-39.9 Adult documented in this encounter
--- OUTSIDE RECORDS SUMMARY | 2024-01-22 15:12 | XMS_ITS | Encounter Summary ---
Author Organization [facility] Address [address] [place] [address] Care Team Providers Care Leave Manager Name Role Phone Unavailable Primary Care Provider Unavailabl e Reason for Visit * Outpatient (Routine) - Closed Specialty Diagnoses / Procedures Referred By Anderson ramesh Referred To Contact Sleep Medicine Silva Maloney P.A.-C. [address] [place] [phone] Phone: tel: fax: [facility] Referral ID Status Reason Start Date Expiration Date Visits Re quested Visits Authorized [id number] Closed 09/01/2023 03/02/2025 1 1 Encounter Details Date Type Department Care Team (Late st Contact Info) Description 10/21/2023 9:30 AM CDT Telemedicine [facility] in [place], [place] [address] [place] [phone] Silva Maloney P.A.-C. [address] [place] [phone] Apnea Sleep Obstructive (Primary Dx) Social History Tobacco Use Types Packs/Day Years Used Date Smoking Tobacco: Former Cigarettes 0 04/06/1977 - 04/06/1985 Smokeless Tobacco: Never Comments:Also smoker 1996 to 1999 Alcohol Use Standard Drinks/Week Comments Yes 2 (1 standard drink = 0.6 oz pure alcohol) seldom consume alcohol, when I do it? s a cocktail or glass o [facility] Utilities Answer Date Recorded In the [...] How often do you attend chur or restorationism services? Never 08/06/2022 Do you belong to any clubs o r organizations such as religious groups, unions, fraternal or athletic groups, or [...] and heating? Not hard at all 08/06/2022 [facility] of Occupat ional Health - Occupational Stress [...] your living situation today? I have a [facility] place to live 08/24/2023 Education Answer Date Recorded What is the highest level of school you have completed or the highest degree you have received? Bachelor's degree (e.g., BA, AB, BS) 08/06/2022 Comments No Sex and Gender Information Value Date Recorded Sex Assigned at Female 05/07/2018 4:20 PM DIRECTOR SALES TRAINING Legal Sex Female 7:47 PM DIRECTOR SALES TRAINING Gender Identity Female 05/07/2018 4:20 PM DIRECTOR SALES TRAINING Sexual Orientation Straight 05/07/2018 4: 20 PM DIRECTOR SALES TRAINING documented as of this encounter Progress Notes * Silva Maloney P.A.-C. - 10/21/2023 9:30 AM CDT SUBJECTIVE This visit was conducted via video to the patient by Silva Maloney PA-C, [facility] CHIEF COMPLAINT/REASON FOR VISIT Post testing report visit HISTORY OF PRESENT ILLNESS I met with Ms. Mcintosh to review test results. ASSESSMENT / PLAN #1 Previous diagnosis moderately severe obstructive sleep #2 Mild obstructive sleep apnea with the use of oral appliance therapy I am seeing Mrs. cMintosh back today for follow-up of her WatchPAT home sleep test from September 30, 2023 which was performed with the use of her oral appliance. She tells me that she ???feels like a new person?? . She is very happy with the improvement in her sleep quality. Previously she tried to advance the device 1 step further however developed jaw pain and went back to her previous advancement. I reviewed the results of the study with her. 7 hours of sleep were recorded. She spent 16.4% the night in REM stage sleep. Her mean oxygen saturation was 93% with a jason of 84%. She slept in all positions. Snoring occurred approximately 21.3% the night. Her pAHI was 12.1 per hour. We compared these results to her original WatchPAT home sleep test from 10/19/2022. The results of this study revealed a pAHI of 26.4 per hour. I discussed with her that the amount of apnea she is having has reduced more than 50%. With an AHI of 12.1 per hour she has now in the mild obstructive sleep apnea range (which is 5-14 events per hour). She is feeling very refreshed and excited about her sleep quality improvement. She will try to advance the device once step further. If she is able to tolerate this she will let me know and we can repeat the WatchPAT home sleep test. Otherwise if she is not able to advance it, I reassured her that currently her pAHI with the use of the appliance puts her in the mild obstructive sleep apnea range at which cardiovascular and other complications are significantly reduced or eliminated. I am so happy she is able to tolerate oral appliance therapy. She had previously tried CPAP 2 timesand was unable to tolerate it. Total time 20 minutes documented in this encounter Plan of Treatment Not on file documented as of this encounter Visit Diagnoses Diagnosis Apnea Sleep Obstructive- Primary documented in this encounter
--- OUTSIDE RECORDS SUMMARY | 2024-01-22 15:12 | XMS_ITS | Encounter Summary ---
Author Organization [facility] Address [address] [place] [address] Care Team Providers Care Dog Or Animal Sitter Name Role Phone Unavailable Primary Care Provider Unavailabl e Reason for Visit * Reason Onset Date Comments Echo Move Up - Nov 25 11/11/2023 Encounter Details Date Type Department Care Team (Latest Contact Info) Description 11/11/2023 Clinical Communication Department of Cardiovascular Medicine in [place], [place] [address] [place] [address] Hereditary Cancer Program CoordinatorJericho M.D. Echo Move Up - Nov 25 Social History Tobacco Use Types Packs/Day Years Used Date Smoking Tobacco: Former Cigarettes 0 04/06/1977 - 04/06/1985 Smokeless Tobacco: Never Comments:Also smoker 1996 to 1999 Alcohol Use Standard Drinks/Week Comments Yes 2 (1 standard drink = 0.6 oz pure alcohol) seldom consume alcohol, when I do it? s a cocktail or glass o [facility] Utilities Answer Date Recorded In the past 12 months has e [employer], gas, oil, or water [employer] threatened to shut off services in your [...] How often do you attend chur or muslim services? Never 08/06/2022 Do you belong to any clubs o r organizations such as sabianism groups, unions, fraFeeFighters or athletic groups, or school groups? Yes [...] and heating? Not hard at all 08/06/2022 [facility] of Occupat ional Health - Occupational Stress [...] your living situation today? I have a [facility] place to live 08/24/2023 Education Answer Date Recorded What is the highest level of school you have completed or the highest degree you have received? Bachelor's degree (e.g., BA, AB, BS) 08/06/2022 Comments No Sex and Gender Information Value Date Recorded Sex Assigned at Female 05/07/2018 4:20 PM MEDICAL ASST Legal Sex Female 7:47 PM MEDICAL ASST Gender Identity Female 05/07/2018 4:20 PM MEDICAL ASST Sexual Orientation Straight 05/07/2018 4: 20 PM MEDICAL ASST documented as of this encounter Plan of Treatment Not on file documented as of this encounter Visit Diagnoses Not on filedocumented in this encounter
--- OUTSIDE RECORDS SUMMARY | 2024-01-22 15:12 | XMS_ITS | Clinical Summary ---
Author Organization [facility] Address [place], [place] [address] Care Team Providers Care Elocution Teacher Name Role Phone Twin Hartman MD Primary Care Provider [phone] Social History Tobacco Use Types Packs/Day Years [...] for age 50+ (1 of 2) 12/03/2011 Pap test for age 21-65 05/14/2023 , 05/14/2020, 02/13/2014, Additional history exists COVID-19 vaccine series (2023-25 season) 2023 01/12/2022, 11/10/2021, 01/12/2021, Additional history exists Influenza for age 50-64 12/06/2023 Pneumococcal series for age 6-64 Aged Out No longer eligible based on patient's age to complete this topic Procedures Procedure Name Priority Date/Time Associated Diagnosis Comments WOOD CUT ENGRAVER THIN PREP PAP SCREEN IMAGED Routine 05/14/2020 9:15 AM CUSTOMER EXPERIENCE RETAIL CLERK from Last 3 Months or Most Recently Relevant to Health Maintenance Results * WOOD CUT ENGRAVER THIN PREP PAP SCREEN IMAGED (05/14/2020 9:15 AM CUSTOMER EXPERIENCE RETAIL CLERK) Case Report Gynecologic Cytology Report ? Case: [id number] ? Authorizing Provider: ??Trish Roman MD ?Collected: ? 05/14/2020 0915 ? Ordering Location: ? [facility] ?Received: ?05/14/2020 1816 ? First Screen: ?Delmy Caceres ? Rescreen: ?Brittany Lyn ? Specimen: ?WOOD CUT ENGRAVER ThinPrep Vial Screening, Cervical/Vaginal ? 05/24/2020 5:42 AM CUSTOMER EXPERIENCE RETAIL CLERK [facility] [facility]AL [facility]AT[facility] INTERPRETATION/ RESULT NEGATIVE FOR INTRAEPITHELIAL LESION OR MALIGNANCY (NIL) (none) 05/24/2020 5:42 AM CUSTOMER EXPERIENCE RETAIL CLERK [facility] [employer] [facility] IMEN ADEQUACY Satisfactory for evaluation Endocervical component present 05/24/2020 5:42 AM CUSTOMER EXPERIENCE RETAIL CLERK [facility] HPV REQUEST HPV and PAP 05/24/2020 5:42 AM CUSTOMER EXPERIENCE RETAIL CLERK [facility] Date of LMP 05/24/2020 5:42 AM CUSTOMER EXPERIENCE RETAIL CLERK [facility] Comment:2011 Last Pap Date 02/13/2014 05/24/2020 5:42 AM CUSTOMER EXPERIENCE RETAIL CLERK [facility] Last Pap Result NIL 5:42 AM CUSTOMER EXPERIENCE RETAIL CLERK [facility] Menstrual Status 05/24/2020 5:42 AM CUSTOMER EXPERIENCE RETAIL CLERK [facility] Additional Information 05/24/2020 5:42 AM [facility] Comment: Interpreted at [facility] [employer] [facility] - [address], [place] [address] Automated Review Successful 05/24/2020 5:42 AM [facility] Comment:Specimen processed s uccessfully by automated certifier device, ThinPrep Imaging System, [employer] ANCILLARY TESTING WOOD CUT ENGRAVER HPV Ordered, Please see separate report 05/24/2020 [...] pre-malignant and malignant lesions. 05/24/2020 5:42 AM [facility] Other (Cervical/Vagina l) 05/14/2020 9:15 AM CUSTOMER EXPERIENCE RETAIL CLERK 05/14/2020 6:16 PM CUSTOMER EXPERIENCE RETAIL CLERK Trish Roman MD PATHOLOGY/CYTOLOGY [facility] [address] [place] [address], from Last 3 Months or Most Recently Relevant to Health Maintenance Care Teams Elocution Teacher Relationship Specialty Start Date End Date Twin Hartman MD [address] [place] [id number] PCP - General Family Practice 12/15/17
--- NOTE | 2024-01-22 15:20 | CRLHL7_ITS ---
For Patients: As a result of the Century Cures Act, medical imaging exams and procedure reports are released immediately into your electronic medical record. You may view this report before your referring provider. If you have questions, please contact your health care provider. BILATERAL SCREENING MAMMOGRAM WITH COMPUTER-AIDED DETECTION AND TOMOSYNTHESIS TECHNIQUE: CC and MLO views were obtained. These mammographic images have been obtained using full-field digital technique. These mammographic images were interpreted with the benefit of computer-aided detection. Breast Tomosynthesis was used in this interpretation. COMPARISON FILM: 01/20/23, 12/25/21, 11/29/20. FINDINGS: There are scattered areas of fibroglandular density. IMPRESSION: There is no radiographic evidence for malignancy. ASSESSMENT: BI-RADS Category 1: Negative RECOMMENDATION: Routine screening mammogram in 1 year. A lay language report of this examination will be provided to the patient. Sean Harvey M.D. Diagnostic Radiologist [email or web address] SP/Dictated by: Sean Harvey MD @ 01/28/2024 11:16:00 AM (Electronically Signed)
== END 2024-01-22 15:09 | disposition home or self-care (01) ==
LOC: MAMMO 15:09
PROVIDERS: PCP Family Medicine; Visit Provider Family Medicine
DX: Z12.31 Encounter for screening mammogram for malignant neoplasm of breast (principal)
CPT/HCPCS: 77063; 77067

== ENCOUNTER 2024-08-01 14:24 | Outpatient (CLI) | payer BC, SELFPAY ==
--- NOTE | 2024-08-01 14:30 | CRLHL7_ITS ---
For Patients: As a result of the Century Cures Act, medical imaging exams and procedure reports are released immediately into your electronic medical record. You may view this report before your referring provider. If you have questions, please contact your health care provider. BILATERAL BREAST MRI WITHOUT AND WITH GADOLINIUM CLINICAL HISTORY: 63-year-old female with elevated risk of breast cancer due to history of treated LEFT breast cancer (lumpectomy). INDICATION FOR BREAST MRI: Screening breast MRI in this high-risk woman. COMPARISON STUDIES: Mammogram 01/22/2024, prior breast MRI 07/27/2023 and 06/10/2022. CONTRAST: 20 mL Dotarem IV. TECHNIQUE: The patient was positioned prone using a breast coil. Multiple imaging sequences were obtained using 1-1.5 mm thick slices with no gap. The image sequences include T2-weighted STIR in the axial plane, T1-weighted nonfat-saturated gradient echo in the axial plane, pre- and post-contrast T1-weighted FLASH 3D with fat suppression in the axial plane, and T1-weighted FLASH high resolution 3D with fat suppression in the sagittal plane. Image post-processing was performed on a [employer] workstation. Complex 3D rendering including maximum intensity projections (MIPS) and volumetric renderings were obtained to optimize visualization of the extent of pathology and relationship to the nipple, skin, and chest wall. This aids in determining feasibility of breast conservation surgery. Subtraction, multiplanar reconstruction, mean curve determination, and angiogenesis mapping were also performed. The study was technically adequate. FINDINGS: Amount of Fibroglandular Tissue: Scattered fibroglandular tissue. Breast Background Enhancement: Mild. RIGHT Breast: No suspicious areas of enhancement. LEFT Breast: No suspicious areas of enhancement. Lymph Nodes: No adenopathy. IMPRESSIONS AND RECOMMENDATIONS: Negative, there is no MRI evidence of malignancy. Continue annual screening mammography and as clinically indicated screening breast MRI. The mammogram and MRI should be offset by 6 months intervals. BI-RADS Category 1: Negative A lay language report of this examination will be provided to the patient. Dictated by Shanti Hutchison MD @ 08/04/2024 12:23:50 PM /sp SP/Dictated by: Shanti Hutchison MD @ 08/04/2024 12:53:00 PM (Electronically Signed)
== END 2024-08-01 14:25 | disposition home or self-care (01) ==
LOC: MRI 14:27
PROVIDERS: PCP Family Medicine; Visit Provider Physician Assistant
DX: Z12.39 Encounter for other screening for malignant neoplasm of breast (principal); N60.91 Unspecified benign mammary dysplasia of right breast; N60.92 Unspecified benign mammary dysplasia of left breast; Z85.3 Personal history of malignant neoplasm of breast
CPT/HCPCS: 77049; A9575

== ENCOUNTER 2025-01-31 16:10 | Outpatient (CLI) | payer BC, SELFPAY ==
--- NOTE | 2025-01-31 16:20 | CRLHL7_ITS ---
For Patients: As a result of the Century Cures Act, medical imaging exams and procedure reports are released immediately into your electronic medical record. You may view this report before your referring provider. If you have questions, please contact your health care provider. INDICATION: BILATERAL SCREENING MAMMOGRAM, ASYMPTOMATIC 64 Y/O FEMALE COMPARISON: 08/01/2024, 01/20/2023, 12/25/2021 TECHNIQUE: Digital mammogram in CC and MLO projections including computer-aided detection (CAD) and tomosynthesis. BREAST COMPOSITION: There are scattered areas of fibroglandular density. FINDINGS: No suspicious findings. ASSESSMENT: BI-RADS 2 Benign RECOMMENDATION: Annual screening mammogram. A lay language report of this examination will be provided to the patient. Dictated by: Sean Harvey MD @ 02/01/2025 11:44:10 (Electronically Signed)
== END 2025-01-31 16:11 | disposition home or self-care (01) ==
LOC: MAMMO 16:11
PROVIDERS: PCP Family Medicine; Visit Provider Family Medicine
DX: Z12.31 Encounter for screening mammogram for malignant neoplasm of breast (principal)
CPT/HCPCS: 77063; 77067